=== PATIENT | female | born 2000 | race Caucasian/White ===

== ENCOUNTER 2020-04-28 04:55 | Inpatient (IN) | payer OTHER ==
--- NOTE | 2020-04-28 04:58 | ED ---
Overdose HPI - General Stated Complaint: Overdose Time Seen by Provider: 04/28/20 04:57 - Related Data Allergies Allergy/AdvReac Type Severity Reaction Status Date / Time Sulfa (Sulfonamide Allergy Anaphylaxis Verified 04/28/20 04:58 Antibiotics) Review of Systems ROS Statement: Those systems with pertinent positive or pertinent negative responses have been documented in the HPI. ROS Other: All systems not noted in ROS Statement are negative. Course Vital Signs 04/28/20 04/28/20 04/28/20 04:58 05:17 05:23 Temperature 97.7 F Pulse Rate 142 H 122 H Respiratory 22 18 16 Rate Blood Pressure 114/84 107/91 O2 Sat by Pulse 84 L 93 L Oximetry 04/28/20 04/28/20 04/28/20 05:37 05:44 06:19 Temperature Pulse Rate 134 H 133 H 130 H Respiratory 16 16 16 Rate Blood Pressure 105/75 118/74 106/76 O2 Sat by Pulse 91 L 95 95 Oximetry 04/28/20 06:28 Temperature Pulse Rate 120 H Respiratory 16 Rate Blood Pressure 109/77 O2 Sat by Pulse 95 Oximetry Medical Decision Making - Lab Data Result diagrams: 04/28/20 05:14 04/28/20 05:14 Lab Results 04/28/20 04/28/20 04/28/20 Range/Units 05:14 05:14 05:36 WBC 9.7 (3.8-10.6) k/uL RBC 5.51 H (3.80-5.40) m/uL Hgb 16.0 (11.4-16.0) gm/dL Hct 49.1 H (34.0-46.0) % MCV 89.2 (80.0-100.0) fL MCH 29.1 (25.0-35.0) pg MCHC 32.7 (31.0-37.0) g/dL RDW 12.9 (11.5-15.5) % Plt Count 420 (150-450) k/uL MPV 7.2 Neutrophils % 63 % Lymphocytes % 29 % Monocytes % 5 % Eosinophils % 1 % Basophils % 1 % Neutrophils # 6.1 (1.3-7.7) k/uL Lymphocytes # 2.8 (1.0-4.8) k/uL Monocytes # 0.5 (0-1.0) k/uL Eosinophils # 0.1 (0-0.7) k/uL Basophils # 0.1 (0-0.2) k/uL Sodium 141 (137-145) mmol/L Potassium 3.8 (3.5-5.1) mmol/L Chloride 103 (98-107) mmol/L Carbon Dioxide 22 (22-30) mmol/L Anion Gap 16 mmol/L BUN 13 (7-17) mg/dL Creatinine 0.85 (0.52-1.04) mg/dL Est GFR (CKD-EPI)AfAm >90 (>60 ml/min/1.73 sqM) Est GFR (CKD-EPI)NonAf >90 (>60 ml/min/1.73 sqM) Glucose 212 H (74-99) mg/dL Calcium 10.1 (8.4-10.2) mg/dL Total Bilirubin 0.5 (0.2-1.3) mg/dL AST 246 H (14-36) U/L ALT 176 H (4-34) U/L Alkaline Phosphatase 141 H (38-126) U/L Creatine Kinase 306 H (30-135) U/L Total Protein 8.7 H (6.3-8.2) g/dL Albumin 5.2 H (3.5-5.0) g/dL Lipase 69 (23-300) U/L Salicylates <1.0 mg/dL Acetaminophen <10.0 ug/mL Serum Alcohol <10 mg/dL Coronavirus (PCR) Not Detected (Not Detectd) - EKG Data -: EKG Interpreted by Me (EKG shows sinus tachycardia 127. 126 QRS 74 QTc 462) Critical Care Time Critical Care Time: Yes Total Critical Care Time: 31 Disposition Clinical Impression: Poisoning by opiates and related narcotics, other, Drug overdose, Non- cardiogenic pulmonary edema, Hypoxia, Tachycardia Disposition: ADMITTED IP TO THIS HOSP Condition: Serious Is patient prescribed a controlled substance at d/c from ED?: No Referrals: Jackie Damon MD [Primary Care Provider] - 1-2 days
[2020-04-28] MEDS ORDERED: ONDANSETRON 4 MG/2 ML VIAL ONE (05:10)
[2020-04-28] MEDS ORDERED: SODIUM CHLORIDE 0.9% 1,000 ML IV STA (05:11)
[2020-04-28] MEDS ORDERED: DIAZEPAM 5 MG/ML 2 ML INJ IVP STA (05:12)
[2020-04-28] MEDS ORDERED: ONDANSETRON 4 MG/2 ML VIAL IVP STA (05:12)
[2020-04-28] MEDS ORDERED: PANTOPRAZOLE 40 MG/10 ML VIAL IVP STA (05:12)
[2020-04-28] MEDS ORDERED: NALOXONE 0.4 MG/ML 1 ML VIAL IVP STA (05:14)
[2020-04-28 05:38] LABS: Basophils # (A) 0.1 k/uL (0-0.2); Basophils % (A) 1 %; Eosinophils # (A) 0.1 k/uL (0-0.7); Eosinophils % (A) 1 %; HCT 49.1 % (34.0-46.0); Lymphocytes # (A) 2.8 k/uL (1.0-4.8); Lymphocytes % (A) 29 %; MCH 29.1 pg (25.0-35.0); MCHC 32.7 g/dL (31.0-37.0); MCV 89.2 fL (80.0-100.0); Mean Platelet Volume 7.2; Monocytes # (A) 0.5 k/uL (0-1.0); Monocytes % (A) 5 %; Neutrophils # (A) 6.1 k/uL (1.3-7.7); Neutrophils % (A) 63 %; Platelet Count 420 k/uL (150-450); RBC 5.51 m/uL (3.80-5.40); RDW 12.9 % (11.5-15.5); WBC 9.7 k/uL (3.8-10.6)
[2020-04-28 05:48] LABS: ALT 176 U/L (4-34); AST 246 U/L (14-36); Acetaminophen <10.0 ug/mL; African American GFR (CKD) >90 (>60 ml/min/1.73 sqM); Albumin 5.2 g/dL (3.5-5.0); Alcohol <10 mg/dL; Alkaline Phosphatase 141 U/L (38-126); Anion Gap 16 mmol/L; Blood Urea Nitrogen 13 mg/dL (7-17); Calcium 10.1 mg/dL (8.4-10.2); Carbon Dioxide 22 mmol/L (22-30); Chloride 103 mmol/L (98-107); Creatine Kinase 306 U/L (30-135); Glucose 212 mg/dL (74-99); Lipase 69 U/L (23-300); Non-African American GFR(CKD) >90 (>60 ml/min/1.73 sqM); Potassium 3.8 mmol/L (3.5-5.1); Salicylate <1.0 mg/dL; Sodium 141 mmol/L (137-145); Total Bilirubin 0.5 mg/dL (0.2-1.3); Total Protein 8.7 g/dL (6.3-8.2)
--- NOTE | 2020-04-28 06:04 | XR ---
EXAM: XR Chest, 1 View CLINICAL HISTORY: ITS.REASON XR Reason: sob TECHNIQUE: Frontal view of the chest. COMPARISON: No relevant prior studies available. FINDINGS/IMPRESSION: Moderate patchy bilateral airspace consolidations, consistent with extensive infiltrates. Follow-up CXR required. No pneumothorax. Heart size exaggerated by projection and low lung volumes.
[2020-04-28] MEDS ORDERED: NALOXONE 0.4 MG/ML 1 ML VIAL IV PRN (06:29)
[2020-04-28] MEDS ORDERED: ONDANSETRON 4 MG/2 ML VIAL IVP PRN (06:29)
[2020-04-28] MEDS: PANTOPRAZOLE 40 MG/10 ML VIAL IV SCH (12:27)
[2020-04-28 13:07] LABS: Appearance,Urine Cloudy (Clear); Bacteria,Urine Rare /hpf; Bilirubin,Urine Negative (Negative); Blood,Urine Negative (Negative); Color,Urine Yellow; Glucose,Urine (UA) Negative (Negative); Hyaline Casts,Urine 3 /lpf (0-2); Ketones,Urine Negative (Negative); Leukocyte Esterase,Urine Negative (Negative); Mucus,Urine Few /hpf; Nitrite,Urine Negative (Negative); PH, Urine 5.5 (5.0-8.0); Protein,Urine Trace (Negative); RBC,Urine <1 /hpf (0-5); Specific Gravity,Urine 1.025 (1.001-1.035); Squamous Epithelial Cell,Urine 1 /hpf (0-4); Urobilinogen,Urine <2.0 mg/dL (<2.0); WBC,Urine 4 /hpf (0-5)
[2020-04-28 13:20] LABS: Amphetamine Screen,Urine Detected (NotDetected); Barbiturate Screen,Urine Not Detected (NotDetected); Benzodiazepines Screen,Urine Detected (NotDetected); Cocaine Screen,Urine Not Detected (NotDetected); Methadone Screen, Urine Not Detected (NotDetected); Opiate Screen,Urine Not Detected (NotDetected); Oxycodone Screen, Urine Not Detected (NotDetected); Phencyclidine Screen,Urine Not Detected (NotDetected); Tricyclic Antidepressant,Urine Not Detected (NotDetected); Urn Cannabinoid Scrn Not Detected (NotDetected)
--- NOTE | 2020-04-28 13:21 | CT ---
EXAMINATION TYPE: CT chest wo con DATE OF EXAM: 04/28/2020 COMPARISON: Chest x-ray 04/28/2020 HISTORY: Diffuse infiltrate in lungs. CT DLP: 512.2 mGycm, Automated exposure control for dose reduction was used. CONTRAST: Performed injected with mL of . TECHNIQUE: Axial images were obtained at 5 mm thick sections. Reconstructed images are reviewed on [employer] computer in the coronal plane. FINDINGS: Portion of the thyroid visualized is normal. Patchy infiltrates are present through the bilateral lung hermosillo findings are nonspecific but can be related to atypical pneumonia in the proper clinical setting. No enlarged mediastinal or hilar adenopathy is evident. Limited CT sections are obtained through the upper abdomen. Abdomen is essentially unremarkable. IMPRESSIONS: 1. Extensive diffuse patchy infiltrates throughout the bilateral lung hermosillo can be compatible with a typical pneumonia.
--- NOTE | 2020-04-28 15:42 | P.HPIM ---
History of Present Illness 19-year-old female came in after heroine overdose. Patient was recently discharged from a correctional facility. Patient denied any fever chills although patient is having significant cough which as per the patient started yesterday. Patient is not bringing up much. Chest x-ray showed highly questionable infiltrate prominently in the right lung hermosillo because of which a CT of the chest was obtained which showed bilateral diffuse infiltrates with some air bronchogram. Patient is tested for Covid 19 which was negative. Sarina ent does have history of hepatitis C. Patient does have mildly elevated liver enzymes secondary to this patient received 1 dose of Marcaine patient is more awake now. Review of Systems REVIEW OF SYSTEMS: CONSTITUTIONAL: No fever, no malaise, no fatigue. HEENT: No recent visual problems or hearing problems. Denied any sore throat. CARDIOVASCULAR: No chest pain, orthopnea, PND, no palpitations, no syncope. PULMONARY: no hemoptysis. GASTROINTESTINAL: No diarrhea, no nausea, no vomiting, no abdominal pain. NEUROLOGICAL: No headaches, no weakness, no numbness. HEMATOLOGICAL: Denies any bleeding or petechiae. GENITOURINARY: Denies any burning micturition, frequency, or urgency. MUSCULOSKELETAL/RHEUMATOLOGICAL: Denies any joint pain, swelling, or any muscle pain. ENDOCRINE: Denies any polyuria or polydipsia. The rest of the 14-point review of systems is negative. Past Medical History Past Medical History: No Reported History History of Any Multi-Drug Resistant Organisms: None Reported Past Surgical History: No Surgical Hx Reported Past Psychological History: No Psychological Hx Reported Smoking Status: Current every day smoker Past Alcohol Use History: None Reported Past Drug Use History: Heroin, Methamphetamine Medications and Allergies Home Medications Medication Instructions Recorded Confirmed Type Mirtazapine [Remeron] 30 mg PO HS 04/28/20 04/28/20 History hydrOXYzine pamoate [Vistaril] 100 mg PO HS 04/28/20 04/28/20 History Allergies Allergy/AdvReac Type Severity Reaction Status Date / Time Sulfa (Sulfonamide Allergy Anaphylaxis Verified 04/28/20 06:38 Antibiotics) Physical Exam Vitals: Vital Signs Temp Pulse Resp BP Pulse Ox 04/28/20 15:30 98.4 F 111 H 18 104/65 96 04/28/20 14:36 111 H 18 104/65 96 04/28/20 13:37 102 H 16 100/60 94 L 04/28/20 12:21 97 16 101/68 96 04/28/20 11:17 98.4 F 110 H 16 102/69 100 04/28/20 10:49 119 H 16 116/71 95 04/28/20 08:51 107 H 16 95 04/28/20 07:25 110 H 16 111/77 99 04/28/20 06:48 122 H 16 117/73 93 L 04/28/20 06:28 120 H 16 109/77 95 04/28/20 06:19 130 H 16 106/76 95 04/28/20 05:44 133 H 16 118/74 95 04/28/20 05:37 134 H 16 105/75 91 L 04/28/20 05:23 122 H 16 107/91 93 L 04/28/20 05:17 18 04/28/20 04:58 97.7 F 142 H 22 114/84 84 L Intake and Output 04/28/20 04/28/20 04/28/20 06:59 14:59 22:59 Other: Weight 99.79 kg PHYSICAL EXAMINATION: GENERAL: The patient is alert and oriented x3, not in any acute distress. Well developed, well nourished. HEENT: Pupils are round and equally reacting to light. EOMI. No scleral icterus. No conjunctival pallor. Normocephalic, atraumatic. No pharyngeal erythema. No thyromegaly. CARDIOVASCULAR: S1 and S2 present. No murmurs, rubs, or gallops. PULMONARY: Crackles posteriorly and bilaterally ABDOMEN: Soft, nontender, nondistended, normoactive bowel sounds. No palpable organomegaly. MUSCULOSKELETAL: No joint swelling or deformity. EXTREMITIES: No cyanosis, clubbing, or pedal edema. NEUROLOGICAL: Gross neurological examination did not reveal any focal deficits. SKIN: No rashes. Results CBC & Chem 7: 04/28/20 05:14 04/28/20 05:14 Labs: Abnormal Lab Results - Last 24 Hours (Table) 04/28/20 04/28/20 04/28/20 Range/Units 05:14 05:14 12:40 RBC 5.51 H (3.80-5.40) m/uL Hct 49.1 H (34.0-46.0) % Glucose 212 H (74-99) mg/dL AST 246 H (14-36) U/L ALT 176 H (4-34) U/L Alkaline Phosphatase 141 H (38-126) U/L Creatine Kinase 306 H (30-135) U/L Total Protein 8.7 H (6.3-8.2) g/dL Albumin 5.2 H (3.5-5.0) g/dL Urine Appearance (Clear) Urine Protein (Negative) Urine Bacteria (None) /hpf Hyaline Casts (0-2) /lpf Urine Mucus (None) /hpf Ur Amphetamines Screen Detected H (NotDetected) U Methamphetamines Scrn Detected H (NotDetected) U Benzodiazepines Scrn Detected H (NotDetected) 04/28/20 Range/Units 12:40 RBC (3.80-5.40) m/uL Hct (34.0-46.0) % Glucose (74-99) mg/dL AST (14-36) U/L ALT (4-34) U/L Alkaline Phosphatase (38-126) U/L Creatine Kinase (30-135) U/L Total Protein (6.3-8.2) g/dL Albumin (3.5-5.0) g/dL Urine Appearance Cloudy H (Clear) Urine Protein Trace H (Negative) Urine Bacteria Rare H (None) /hpf Hyaline Casts 3 H (0-2) /lpf Urine Mucus Few H (None) /hpf Ur Amphetamines Screen (NotDetected) U Methamphetamines Scrn (NotDetected) U Benzodiazepines Scrn (NotDetected) Assessment and Plan Plan: -Overdose on fentanyl: Patient is more awake now patient received narcane last night. Patient has amphetamines and benzodiazepines in her system as well -Cough and shortness of breath, acute hypoxic respiratory failure. Patient is presently on 3 L of oxygen this is improving when admitted patient was on BiPAP improved with treatment of opiate overdose although patient has bilateral infiltrates possibility of atypical pneumonia depending on the CT findings sarina ent was started on levofloxacin will obtain mycoplasma antibody and Legionella urinary antigen. -Tachycardia: Patient is sinus tachycardia with multifactorial from above- mentioned reasons patient will be going on IV fluids -Chronic hep C follow-up with the gastroneurology as infectious disease as an outpatient patient has liver enzymes that are elevated will repeat another CBC make sure they're not going up -Nicotine abuse: Counseling was provided -DVT prophylaxis with Lovenox, GI prophylaxis Pepcid
[2020-04-28] MEDS: SODIUM CHLORIDE 0.9% 1,000 ML IV SCH (15:58)
[2020-04-28] MEDS ORDERED: LEVOFLOXACIN 750MG-D5W PMX 750 MG in DEXTROSE/WATER 1 150ML.BAG IVPB SCH (16:00)
[2020-04-28] MEDS ORDERED: ENOXAPARIN 40 MG/0.4 ML SYRINGE SQ STA (16:23)
[2020-04-28] MEDS ORDERED: IPRATROPIUM-ALBUTEROL 3 ML NEB INHALATION PRN (17:11)
--- NOTE | 2020-04-28 17:11 | P.CNPUL ---
History of Present Illness Consult date: 04/28/20 Requesting physician: Debbie Benitez Reason for consult: dyspnea, cough, chest pain, hypoxemia, pneumonia, abnormal CXR/CT Chief complaint: Shortness of breath, hemoptysis. History of present illness: 19-year-old female, who apparently was brought into the emergency room, on April 28, at 5 AM, with apparent overdose. The patient states that she overdosed on fentanyl, which she was injecting. Her drug screen was also positive for amphetamines, methamphetamines, and benzodiazepines. The patient really does not have any memory of what happened to her. The patient only remembers being brought into the hospital by EMS. She apparently was doing drugs with some friends. This apparently was not her first overdose attempt and she states that she's had multiple overdose attempts in the past. She states that she does not vape, but does smoke cigarettes. She denies smoking marijuana. Her chest x-ray showed diffuse bilateral infiltrates, which could relate to negative pressure pulmonary edema, and/or aspiration. In addition, she's been coughing up bright red blood. She apparently does not have any past medical history. COVID 19 testing was negative. She does have a history of hepatitis C. White count is 9.7, hemoglobin 16, hematocrit 49.1, and platelet count 120,000. Sodium potassium chloride and CO2 were normal. Anion gap 16. BUN 13, and creatinine 0.85. AST was 246, ALT 176, CK 306, and urine was essentially negative. Again, drug screen was positive for amphetamines, methamphetamines, and benzodiazepines. Chest x-ray shows bilateral patchy airspace consolidations, and computed tomography scan extensive diffuse patchy infiltrates throughout both lungs. Review of Systems REVIEW OF SYSTEMS: CONSTITUTIONAL: [Negative.] NEUROLOGIC: [ Negative.] HEENT: [ Negative.] CARDIAC: [Negative.] PULMONARY: Shortness of breath, chest pain, cough, and hemoptysis. GI: [Negative.] : [Negative.] RHEUMATOLOGIC: [ Negative.] IMMUNOLOGIC: [ Negative.] ENDOCRINE: [Negative. ] DERMATOLOGIC: [Negative.] Past Medical History Past Medical History: No Reported History History of Any Multi-Drug Resistant Organisms: None Reported Past Surgical History: No Surgical Hx Reported Past Psychological History: Anxiety, Depression Smoking Status: Current every day smoker Past Alcohol Use History: None Reported Past Drug Use History: Heroin, Methamphetamine - Past Family History Father Family Medical History: Hypertension Medications and Allergies Home Medications Medication Instructions Recorded Confirmed Type Mirtazapine [Remeron] 30 mg PO HS 04/28/20 04/28/20 History hydrOXYzine pamoate [Vistaril] 100 mg PO HS 04/28/20 04/28/20 History Allergies Allergy/AdvReac Type Severity Reaction Status Date / Time Sulfa (Sulfonamide Allergy Anaphylaxis Verified 04/28/20 06:38 Antibiotics) Physical Exam Osteopathic Statement: *. No significant issues noted on an osteopathic structural exam other than those noted in the History and Physical/Consult. Vitals: Vital Signs Temp Pulse Pulse Resp BP BP Pulse Ox 04/28/20 16:30 109 H 20 04/28/20 16:04 98.2 F 112 H 18 109/61 93 L 04/28/20 15:30 98.4 F 111 H 18 104/65 96 04/28/20 14:36 111 H 18 104/65 96 04/28/20 13:37 102 H 16 100/60 94 L 04/28/20 12:21 97 16 101/68 96 04/28/20 11:17 98.4 F 110 H 16 102/69 100 04/28/20 10:49 119 H 16 116/71 95 04/28/20 08:51 107 H 16 95 04/28/20 07:25 110 H 16 111/77 99 04/28/20 06:48 122 H 16 117/73 93 L 04/28/20 06:28 120 H 16 109/77 95 04/28/20 06:19 130 H 16 106/76 95 04/28/20 05:44 133 H 16 118/74 95 04/28/20 05:37 134 H 16 105/75 91 L 04/28/20 05:23 122 H 16 107/91 93 L 04/28/20 05:17 18 04/28/20 04:58 97.7 F 142 H 22 114/84 84 L Intake and Output 04/28/20 04/28/20 04/28/20 06:59 14:59 22:59 Other: Weight 99.79 kg 99.79 kg No acute distress, oriented 3. The patient's on 3 L, and her saturation is 93%. No conversational dyspnea, or use of accessory muscles. HEENT examination is grossly unremarkable. Mucous membranes are moist. Neck supple. Full range of motion. No adenopathy thyromegaly or neck vein distention. Cardiovascular examination reveals regular rhythm rate. S1-S2 normal. No S3 or S4. No discernible murmur noted. Heart rate 109. Lungs reveal bilateral coarse rhonchi, and mild expiratory wheezes. No crackles. Breath sounds equal bilaterally. Abdomen soft bowel sounds are heard. No masses or tenderness. Extremities are intact. No cyanosis clubbing or edema. Skin is without rash or lesion. Neurologic examination is brief but nonfocal. Results - Laboratory Findings CBC and BMP: 04/28/20 05:14 04/28/20 05:14 Abnormal lab findings: Abnormal Labs 04/28/20 04/28/20 04/28/20 05:14 05:14 12:40 RBC 5.51 H Hct 49.1 H Glucose 212 H AST 246 H ALT 176 H Alkaline Phosphatase 141 H Creatine Kinase 306 H Total Protein 8.7 H Albumin 5.2 H Urine Appearance Urine Protein Urine Bacteria Hyaline Casts Urine Mucus Ur Amphetamines Screen Detected H U Methamphetamines Scrn Detected H U Benzodiazepines Scrn Detected H 04/28/20 12:40 RBC Hct Glucose AST ALT Alkaline Phosphatase Creatine Kinase Total Protein Albumin Urine Appearance Cloudy H Urine Protein Trace H Urine Bacteria Rare H Hyaline Casts 3 H Urine Mucus Few H Ur Amphetamines Screen U Methamphetamines Scrn U Benzodiazepines Scrn - Diagnostic Findings Chest x-ray: image reviewed CT scan - chest: image reviewed Assessment and Plan Assessment: Diffuse bilateral infiltrates with mild hypoxemia, which 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 Hemoptysis, secondary to above. History of polysubstance abuse including heroin, methamphetamines, amphetamines, and benzodiazepines. History of hepatitis C. History of previous drug overdoses. History of chronic tobacco use. Plan: Plan dated 04/28/2020. I recommend mostly just supportive care for this patient. Oxygen therapy, bronchodilators, and observation. I don't think the patient would benefit from antibiotics at this time. This is probably not or pharyngeal aspiration but rather gastric acid aspiration, which does not respond to antibiotics. Corticosteroid should not be used either. I will continue to follow make recommendations are appropriate. A repeat chest x-ray in the morning should be done. Additional recommendations and suggestions are forthcoming. Certainly things may change, and adjustments will need to be made. Time with Patient: Greater than 30
[2020-04-28] MEDS: IPRATROPIUM-ALBUTEROL 3 ML NEB INHALATION SCH (19:35)
[2020-04-28] MEDS: FAMOTIDINE 20 MG TAB PO SCH (21:03)
[2020-04-28] MEDS: IBUPROFEN 600 MG TAB PO PRN (21:03)
[2020-04-28] MEDS ORDERED: IBUPROFEN 600 MG TAB PO SCH (22:00)
[2020-04-29] MEDS: SODIUM CHLORIDE 0.9% 1,000 ML IV SCH ×3 (03:46→20:32)
[2020-04-29] MEDS: IPRATROPIUM-ALBUTEROL 3 ML NEB INHALATION SCH ×3 (07:40→20:51)
[2020-04-29 08:25] LABS: HCT 34.9 % (34.0-46.0); MCH 29.5 pg (25.0-35.0); MCV 89.2 fL (80.0-100.0); Mean Platelet Volume 6.8; RBC 3.91 m/uL (3.80-5.40); RDW 12.8 % (11.5-15.5); WBC 10.2 k/uL (3.8-10.6)
[2020-04-29 08:31] LABS: HGB 11.5 gm/dL (11.4-16.0); Platelet Count 196 k/uL (150-450)
[2020-04-29 08:43] LABS: ALT 128 U/L (4-34); AST 139 U/L (14-36); African American GFR (CKD) >90 (>60 ml/min/1.73 sqM); Albumin 3.4 g/dL (3.5-5.0); Alkaline Phosphatase 66 U/L (38-126); Anion Gap 6 mmol/L; Blood Urea Nitrogen 13 mg/dL (7-17); Calcium 8.1 mg/dL (8.4-10.2); Carbon Dioxide 25 mmol/L (22-30); Chloride 105 mmol/L (98-107); Glucose 87 mg/dL (74-99); Magnesium 1.8 mg/dL (1.6-2.3); Non-African American GFR(CKD) >90 (>60 ml/min/1.73 sqM); Phosphorus 2.7 mg/dL (2.5-4.5); Potassium 4.1 mmol/L (3.5-5.1); Sodium 136 mmol/L (137-145); Total Protein 5.9 g/dL (6.3-8.2)
[2020-04-29] MEDS: IBUPROFEN 600 MG TAB PO PRN (08:44)
[2020-04-29] MEDS: PANTOPRAZOLE 40 MG/10 ML VIAL IV SCH ×2 (08:44→20:32)
[2020-04-29] MEDS: FAMOTIDINE 20 MG TAB PO SCH (08:45)
[2020-04-29] MEDS ORDERED: ENOXAPARIN 40 MG/0.4 ML SYRINGE SQ SCH (09:00)
--- NOTE | 2020-04-29 11:28 | XR ---
EXAMINATION TYPE: XR chest 1V DATE OF EXAM: 04/29/2020 COMPARISON: 04/28/2020 INDICATION: NCPE TECHNIQUE: Single frontal view of the chest is obtained. FINDINGS: The heart size is normal. The pulmonary vasculature is distinct. Patchy bilateral lung infiltrates are present. This appears improved from comparison. IMPRESSION: 1. Patchy bilateral infiltrates correlate for atypical pneumonia. Findings are improved from comparis on.
--- NOTE | 2020-04-29 13:34 | P.PN ---
Subjective Progress Note Date: 04/29/20 Principal diagnosis: Drug overdose, aspiration 19-year-old female, who apparently was brought into the emergency room, on April 28, at 5 AM, with apparent overdose. The patient states that she overdosed on fentanyl, which she was injecting. Her drug screen was also positive for amphetamines, methamphetamines, and benzodiazepines. The patient really does not have any memory of what happened to her. The patient only remembers being brought into the hospital by EMS. She apparently was doing drugs with some friends. This apparently was not her first overdose attempt and she states that she's had multiple overdose attempts in the past. She states that she does not vape, but does smoke cigarettes. She denies smoking marijuana. Her chest x-ray showed diffuse bilateral infiltrates, which could relate to negative pressure pulmonary edema, and/or aspiration. In addition, she's been coughing up bright red blood. She apparently does not have any past medical history. COVID 19 testing was negative. She does have a history of hepatitis C. White count is 9.7, hemoglobin 16, hematocrit 49.1, and platelet count 120,000. Sodium potassium chloride and CO2 were normal. Anion gap 16. BUN 13, and creatinine 0.85. AST was 246, ALT 176, CK 306, and urine was essentially negative. Again, drug screen was positive for amphetamines, methamphetamines, and benzodiazep sandra. Chest x-ray shows bilateral patchy airspace consolidations, and computed tomography scan extensive diffuse patchy infiltrates throughout both lungs. The patient is seen today 04/29/2020 in follow-up on the selective care unit. She is currently resting comfortably in bed. Awake and alert, in no acute distress. Maintaining O2 saturations in the low 90s on 3 L/m per nasal cannula. Afebrile. She is feeling a bit better today compared to yesterday. Less cough and congestion. Less hemoptysis. Chest x-ray showed slight improvement in the patchy bilateral infiltrates. White count 10.2. Hemoglobin 11.5. Sodium 136. Potassium 4.1. Creatinine 0.54. She remains on bronchodilators, Protonix. Objective - Vital Signs Vital signs: Vital Signs Temp 98.5 F 04/29/20 08:00 Pulse 107 H 04/29/20 12:00 Resp 18 04/29/20 12:00 BP 91/52 04/29/20 12:00 Pulse Ox 93 L 04/29/20 12:00 Intake & Output 04/28/20 04/29/20 04/29/20 18:59 06:59 18:59 Intake Total 450 Balance 450 Weight 99.79 kg 103.2 kg Intake: Oral 450 Other: Voiding Method Toilet # Voids 1 - Exam GENERAL EXAM: Alert, pleasant 19-year-old female patient, on 3 L nasal cannula, comfortable in no apparent distress. HEAD: Normocephalic. EYES: Normal reaction of pupils, equal size. NOSE: Clear with pink turbinates. THROAT: No erythema or exudates. NECK: No masses, no JVD. CHEST: No chest wall deformity. LUNGS: Equal air entry with bilateral scattered rhonchi. CVS: S1 and S2 normal with no audible murmur, regular rhythm. ABDOMEN: No hepatosplenomegaly, normal bowel sounds, no guarding or rigidity. SPINE: No scoliosis or deformity SKIN: No rashes CENTRAL NERVOUS SYSTEM: No focal deficits, tone is normal in all 4 extremities. EXTREMITIES: There is no peripheral edema. No clubbing, no cyanosis. Peripheral pulses are intact. 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 2 Hemoptysis, secondary to above. 3 History of polysubstance abuse including heroin, methamphetamines, amphetamines, and benzodiazepines. 4 History of hepatitis C. 5 History of previous drug overdoses. 6 History of chronic tobacco use. Plan: The patient was seen and evaluated by Dr. Hercules Chest x-ray and labs reviewed The moment improved today compared to yesterday Titrate down the FiO2 as tolerated Repeat chest x-ray in a.m. Probable discharge in the a.m. I, the cosigning physician, performed a history & physical examination of the patient. Lungs sounds with bilateral scattered rhonchi. Maintaining good O2 saturations in the 90s on 3 L/m per nasal cannula. I discussed the assessment and plan of care with my nurse practitioner, Bethany Rice. I attest to the above note as dictated by her.
[2020-04-29] MEDS ORDERED: guaiFENesin-DM 100-10MG/5ML 10 ML CUP PO PRN (16:06)
[2020-04-29] MEDS: BENZOCAINE/MENTHOL LOZENG 1 EACH LOZENGE MUCOUS MEM PRN (17:42)
--- NOTE | 2020-04-29 17:53 | P.PN ---
Subjective 19-year-old female came in after heroine overdose. Patient was recently discharged from a correctional facility. Patient denied any fever chills a lthough patient is having significant cough which as per the patient started yesterday. Patient is not bringing up much. Chest x-ray showed highly questionable infiltrate prominently in the right lung hermosillo because of which a CT of the chest was obtained which showed bilateral diffuse infiltrates with some air bronchogram. Patient is tested for Covid 19 which was negative. Patient does have history of hepatitis C. Patient does have mildly elevated liver enzymes secondary to this patient received 1 dose of Marcaine patient is more awake now. 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 Patient is much more awake looks much better today Constitutional: Denied any fatigue denied any fever. Cardio vascular: denied any chest pain, palpitations Gastrointestinal denied any nausea vomiting Pulmonary: Denied any shortness of breath cough Neurologic denied any new focal deficits All inpatient medications were reviewed and appropriate changes in these medications as dictated in the interval history and assessment and plan. Objective - Vital Signs Vital signs: Vital Signs Temp 98.5 F 04/29/20 08:00 Pulse 107 H 04/29/20 13:57 Resp 18 04/29/20 13:57 BP 91/52 04/29/20 12:00 Pulse Ox 93 L 04/29/20 12:00 Intake & Output 04/28/20 04/29/20 04/29/20 18:59 06:59 18:59 Intake Total 450 480 Balance 450 480 Weight 99.79 kg 103.2 kg Intake: Oral 450 480 Other: Voiding Method Toilet # Voids 1 - Exam PHYSICAL EXAMINATION: GENERAL: The patient is alert and oriented x3, not in any acute distress. Well developed, well nourished. HEENT: Pupils are round and equally reacting to light. EOMI. No scleral icterus. No conjunctival pallor. Normocephalic, atraumatic. No pharyngeal erythema. No thyromegaly. CARDIOVASCULAR: S1 and S2 present. No murmurs, rubs, or gallops. PULMONARY: Crackles posteriorly and bilaterally ABDOMEN: Soft, nontender, nondistended, normoactive bowel sounds. No palpable organomegaly. MUSCULOSKELETAL: No joint swelling or deformity. EXTREMITIES: No cyanosis, clubbing, or pedal edema. NEUROLOGICAL: Gross neurological examination did not reveal any focal deficits. SKIN: No rashes. - Labs CBC & Chem 7: 04/29/20 08:15 04/29/20 08:15 Labs: Abnormal Lab Results - Last 24 Hours (Table) 04/29/20 Range/Units 08:15 Sodium 136 L (137-145) mmol/L Calcium 8.1 L (8.4-10.2) mg/dL AST 139 H (14-36) U/L ALT 128 H (4-34) U/L Total Protein 5.9 L (6.3-8.2) g/dL Albumin 3.4 L (3.5-5.0) g/dL Assessment and Plan Plan: -Overdose on fentanyl: Patient is more awake now patient received narcane last night. Patient has amphetamines and benzodiazepines in her system as well -Cough and shortness of breath, acute hypoxic respiratory failure. 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
[2020-04-30] MEDS: BENZOCAINE/MENTHOL LOZENG 1 EACH LOZENGE MUCOUS MEM PRN ×2 (02:58→20:58)
[2020-04-30] MEDS: IBUPROFEN 600 MG TAB PO PRN ×2 (02:58→20:58)
[2020-04-30] MEDS: SODIUM CHLORIDE 0.9% 1,000 ML IV SCH ×2 (06:34→09:27)
[2020-04-30] MEDS: IPRATROPIUM-ALBUTEROL 3 ML NEB INHALATION SCH ×3 (07:32→19:42)
--- NOTE | 2020-04-30 08:21 | P.PN ---
Subjective 19-year-old female came in after heroine overdose. Patient was recently discharged from a correctional facility. Patient denied any fever chills a lthough patient is having significant cough which as per the patient started yesterday. Patient is not bringing up much. Chest x-ray showed highly questionable infiltrate prominently in the right lung hermosillo because of which a CT of the chest was obtained which showed bilateral diffuse infiltrates with some air bronchogram. Patient is tested for Covid 19 which was negative. Patient does have history of hepatitis C. Patient does have mildly elevated liver enzymes secondary to this patient received 1 dose of Marcaine patient is more awake now. 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 Patient is much more awake looks much better today 04/30/2020 Patient is still requiring oxygen desaturated to 87% at rest without oxygen patient will be monitored one more day possibility of discharge tomorrow. Constitutional: Denied any fatigue denied any fever. Cardio vascular: denied any chest pain, palpitations Gastrointestinal denied any nausea vomiting Pulmonary: Denied any shortness of breath cough Neurologic denied any new focal deficits All inpatient medications were reviewed and appropriate changes in these me dications as dictated in the interval history and assessment and plan. Objective - Vital Signs Vital signs: Vital Signs Temp 97.6 F 04/30/20 03:24 Pulse 104 H 04/30/20 07:42 Resp 22 04/30/20 03:24 BP 125/82 04/30/20 03:24 Pulse Ox 92 L 04/30/20 03:24 Intake & Output 04/29/20 04/30/20 04/30/20 18:59 06:59 18:59 Intake Total 720 540 118 Balance 720 540 118 Weight 103.3 kg Intake: Oral 720 540 118 Other: Voiding Method Toilet # Voids 2 1 1 - Exam PHYSICAL EXAMINATION: GENERAL: The patient is alert and oriented x3, not in any acute distress. Well developed, well nourished. HEENT: Pupils are round and equally reacting to light. EOMI. No scleral icterus. No conjunctival pallor. Normocephalic, atraumatic. No pharyngeal erythema. No thyromegaly. CARDIOVASCULAR: S1 and S2 present. No murmurs, rubs, or gallops. PULMONARY: Clear without crackles or wheezing. ABDOMEN: Soft, nontender, nondistended, normoactive bowel sounds. No palpable organomegaly. MUSCULOSKELETAL: No joint swelling or deformity. EXTREMITIES: No cyanosis, clubbing, or pedal edema. NEUROLOGICAL: Gross neurological examination did not reveal any focal deficits. SKIN: No rashes. - Labs CBC & Chem 7: 04/29/20 08:15 04/29/20 08:15 Labs: Abnormal Lab Results - Last 24 Hours (Table) 04/29/20 Range/Units 08:15 Sodium 136 L (137-145) mmol/L Calcium 8.1 L (8.4-10.2) mg/dL AST 139 H (14-36) U/L ALT 128 H (4-34) U/L Total Protein 5.9 L (6.3-8.2) g/dL Albumin 3.4 L (3.5-5.0) g/dL Assessment and Plan Plan: -Overdose on fentanyl: Patient is more awake now patient received narcaneon admission. Patient has amphetamines and benzodiazepines in her system as well -Cough and shortness of breath, acute hypoxic respiratory failure. 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
[2020-04-30] MEDS: PANTOPRAZOLE 40 MG/10 ML VIAL IV SCH ×2 (09:26→20:59)
--- NOTE | 2020-04-30 09:50 | XR ---
EXAMINATION TYPE: XR chest 2V DATE OF EXAM: 04/30/2020 COMPARISON: 04/29/2020 INDICATION: Aspiration pneumonia TECHNIQUE: Frontal and lateral views of the chest are obtained. FINDINGS: The heart size is normal. The pulmonary vasculature is normal. Mild left perihilar infiltrate remains present. Right lower lobe infiltrate is not entirely excluded. Findings overall have improved over the interval.. IMPRESSION: 1. Significant improvement of bilateral lung infiltrates. Mild left perihilar infiltrate remains pres ent and there may be some minimal right lower lobe infiltrate.
--- NOTE | 2020-04-30 13:53 | P.PN ---
Subjective Progress Note Date: 04/30/20 Principal diagnosis: Drug overdose, aspiration 19-year-old female, who apparently was brought into the emergency room, on April 28, at 5 AM, with apparent overdose. The patient states that she overdosed on fentanyl, which she was injecting. Her drug screen was also positive for amphetamines, methamphetamines, and benzodiazepines. The patient really does not have any memory of what happened to her. The patient only remembers being brought into the hospital by EMS. She apparently was doing drugs with some friends. This apparently was not her first overdose attempt and she states that she's had multiple overdose attempts in the past. She states that she does not vape, but does smoke cigarettes. She denies smoking marijuana. Her chest x-ray showed diffuse bilateral infiltrates, which could relate to negative pressure pulmonary edema, and/or aspiration. In addition, she's been coughing up bright red blood. She apparently does not have any past medical history. COVID 19 testing was negative. She does have a history of hepatitis C. White count is 9.7, hemoglobin 16, hematocrit 49.1, and platelet count 120,000. Sodium potassium chloride and CO2 were normal. Anion gap 16. BUN 13, and creatinine 0.85. AST was 246, ALT 176, CK 306, and urine was essentially negative. Again, drug screen was positive for amphetamines, methamphetamines, and benzodiazep sandra. Chest x-ray shows bilateral patchy airspace consolidations, and computed tomography scan extensive diffuse patchy infiltrates throughout both lungs. The patient is seen today 04/29/2020 in follow-up on the selective care unit. She is currently resting comfortably in bed. Awake and alert, in no acute distress. Maintaining O2 saturations in the low 90s on 3 L/m per nasal cannula. Afebrile. She is feeling a bit better today compared to yesterday. Less cough and congestion. Less hemoptysis. Chest x-ray showed slight improvement in the patchy bilateral infiltrates. White count 10.2. Hemoglobin 11.5. Sodium 136. Potassium 4.1. Creatinine 0.54. She remains on bronchodilators, Protonix. The patient is seen today 04/30/2020 in follow-up on the selective care unit. She is currently resting comfortably in bed. Awake and alert in no acute distress. Denies any worsening shortness of breath, cough or congestion. No further hemoptysis. Chest x-ray showing thickened improvement. Mild left perihilar infiltrate remains and there is minimal right lower lobe infiltrate. She is still on 2 L/m per nasal cannula to maintain O2 saturations 90s. She is down to 83% on room air at rest. Objective - Vital Signs Vital signs: Vital Signs Temp 97.8 F 04/30/20 08:00 Pulse 109 H 04/30/20 13:39 Resp 20 04/30/20 13:39 BP 113/72 04/30/20 12:00 Pulse Ox 95 04/30/20 12:00 Intake & Output 04/29/20 04/30/20 04/30/20 18:59 06:59 18:59 Intake Total 720 540 118 Balance 720 540 118 Weight 103.3 kg Intake: Oral 720 540 118 Other: Voiding Method Toilet # Voids 2 1 1 - Exam GENERAL EXAM: Alert, pleasant 19-year-old female patient, on 2 L nasal cannula, comfortable in no apparent distress. HEAD: Normocephalic. EYES: Normal reaction of pupils, equal size. NOSE: Clear with pink turbinates. THROAT: No erythema or exudates. NECK: No masses, no JVD. CHEST: No chest wall deformity. LUNGS: Equal air entry with bilateral scattered rhonchi. CVS: S1 and S2 normal with no audible murmur, regular rhythm. ABDOMEN: No hepatosplenomegaly, normal bowel sounds, no guarding or rigidity. SPINE: No scoliosis or deformity SKIN: No rashes CENTRAL NERVOUS SYSTEM: No focal deficits, tone is normal in all 4 extremities. EXTREMITIES: There is no peripheral edema. No clubbing, no cyanosis. Peripheral pulses are intact. - Labs CBC & Chem 7: 04/29/20 08:15 04/29/20 08:15 Assessment and Plan Assessment: 1 Diffuse bilateral infiltrates with mild hypoxemia, which 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 2 Hemoptysis, secondary to above. 3 History of polysubstance abuse including heroin, methamphetamines, amphetamines, and benzodiazepines. 4 History of hepatitis C. 5 History of previous drug overdoses. 6 History of chronic tobacco use. Plan: The patient was seen and evaluated by Dr. Hercules Chest x-ray showing significant improvement Cleared for discharge from the pulmonary standpoint May qualify from home oxygen X-ray in our office in 1-2 weeks I, the cosigning physician, performed a history & physical examination of the patient. Lungs sounds with bilateral scattered rhonchi. Maintaining good O2 saturations in the 90s on 2 L/m per nasal cannula. I discussed the assessment and plan of care with my nurse practitioner, Bethany Rice. I attest to the above note as dictated by her.
[2020-05-01] MEDS: SODIUM CHLORIDE 0.9% 1,000 ML IV SCH ×2 (05:29→21:03)
[2020-05-01] MEDS: IPRATROPIUM-ALBUTEROL 3 ML NEB INHALATION SCH ×3 (07:54→19:17)
[2020-05-01] MEDS: PANTOPRAZOLE 40 MG/10 ML VIAL IV SCH (09:17)
--- NOTE | 2020-05-01 09:39 | P.PN ---
Subjective Progress Note Date: 05/01/20 19-year-old female, who apparently was brought into the emergency room, on April 28, at 5 AM, with apparent overdose. The patient states that she overdosed on fentanyl, which she was injecting. Her drug screen was also positive for amphetamines, methamphetamines, and benzodiazepines. The patient really does not have any memory of what happened to her. The patient only remembers being brought into the hospital by EMS. She apparently was doing drugs with some friends. This apparently was not her first overdose attempt and she states that she's had multiple overdose attempts in the past. She states that she does not vape, but does smoke cigarettes. She denies smoking marijuana. Her chest x-ray showed diffuse bilateral infiltrates, which could relate to negative pressure pulmonary edema, and/or aspiration. In addition, she's been coughing up bright red blood. She apparently does not have any past medical history. COVID 19 testing was negative. She does have a history of hepatitis C. White count is 9.7, hemoglobin 16, hematocrit 49.1, and platelet count 120,000. Sodium potassium chloride and CO2 were normal. Anion gap 16. BUN 13, and creatinine 0.85. AST was 246, ALT 176, CK 306, and urine was essentially negative. Again, drug screen was positive for amphetamines, methamphetamines, and benzodiazepines. Chest x-ray shows bilateral patchy airspace consolidations, and computed tomography scan extensive diffuse patchy infiltrates throughout both lungs. The patient is seen today 04/29/2020 in follow-up on the selective care unit. She is currently resting comfortably in bed. Awake and alert, in no acute distress. Maintaining O2 saturations in the low 90s on 3 L/m per nasal cannula. Afebrile. She is feeling a bit better today compared to yesterday. Less cough and congestion. Less hemoptysis. Chest x-ray showed slight improvement in the patchy bilateral infiltrates. White count 10.2. Hemoglobin 11.5. Sodium 136. Potassium 4.1. Creatinine 0.54. She remains on bronchodilators, Protonix. The patient is seen today 04/30/2020 in follow-up on the selective care unit. She is currently resting comfortably in bed. Awake and alert in no acute distress. Denies any worsening shortness of breath, cough or congestion. No further hemoptysis. Chest x-ray showing thickened improvement. Mild left perihilar infiltrate remains and there is minimal right lower lobe infiltrate. She is still on 2 L/m per nasal cannula to maintain O2 saturations 90s. She is down to 83% on room air at rest. On 05/01/2020 the patient is being seen in follow-up. The patient is awake and alert and the patient is following commands and answering questions. Denies having any significant shortness of breath. Note that the patient was hospitalized a few days back after she overdosed on fentanyl. She was also positive for amphetamines and methamphetamines and benzodiazepines. She has no recollection of these events. The patient also smokes marijuana. The chest x- ray showed diffuse but the pulmonary infiltrates and this was considered to be related to aspiration/acute lung injury. Her coronavirus/Covid 19 testing came back negative and the patient has positive history of hepatitis C. She did have abnormal LFTs which are also improving for now. Electrolytes are all within normal limits. She is currently on 2 L by nasal cannula with a pulse ox of 97%. She is receiving IV fluid with 75 mL of normal saline. The chest x-ray from yesterday showed improvement in about the pulmonary infiltrates and the patient had left perihilar infiltrate that was still present. There may be some also in the right lower lobe. Subsequently, I was able to wean her down to room air oxygen today and oxygen level remains above 90% on room air oxygen. The last chest x-rays from yesterday showed some limited infiltration of the left perihilar area and the right perihilar area. Objective - Vital Signs Vital signs: Vital Signs Temp 98.2 F 05/01/20 03:35 Pulse 96 05/01/20 08:05 Resp 18 05/01/20 03:35 BP 142/84 05/01/20 03:35 Pulse Ox 98 05/01/20 03:35 Intake & Output 04/30/20 05/01/20 05/01/20 18:59 06:59 18:59 Intake Total 358 880 Balance 358 880 Weight 102.6 kg Intake: Oral 358 880 Other: Voiding Method Toilet # Voids 1 2 - Exam GENERAL EXAM: Alert, pleasant 19-year-old female patient, on 2 L nasal cannula, comfortable in no apparent distress. HEAD: Normocephalic. EYES: Normal reaction of pupils, equal size. NOSE: Clear with pink turbinates. THROAT: No erythema or exudates. NECK: No masses, no JVD. CHEST: No chest wall deformity. LUNGS: Equal air entry with bilateral scattered rhonchi. CVS: S1 and S2 normal with no audible murmur, regular rhythm. ABDOMEN: No hepatosplenomegaly, normal bowel sounds, no guarding or rigidity. SPINE: No scoliosis or deformity SKIN: No rashes CENTRAL NERVOUS SYSTEM: No focal deficits, tone is normal in all 4 extremities. EXTREMITIES: There is no peripheral edema. No clubbing, no cyanosis. Peripheral pulses are intact. - Labs CBC & Chem 7: 04/29/20 08:15 04/29/20 08:15 Assessment and Plan Plan: 1 Diffuse bilateral infiltrates with mild hypoxemia, which 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 The patient is currently on 2 L of oxygen by nasal cannula. The chest x-ray was showing improvement in the vital pulmonary infiltrates. No signs of any respiratory distress at this point in time. 2 Hemoptysis, secondary to above. 3 History of polysubstance abuse including heroin, methamphetamines, amphetamines, and benzodiazepines. 4 History of hepatitis C. 5 History of previous drug overdoses. 6 History of chronic tobacco use 7 abnormal LFTs, improving. Plan: Chest x-ray showing significant improvement, currently on room air oxygen. No signs of any respiratory distress. No leukocytosis. LFTs are improving. She is tolerating her diet. Normal mentation. IV fluids will be To KVO. Possible Home Today. I'll Suggest Repeating One Final Chest X-Ray Prior to Her Being Discharged to Make Sure There Is No Worsening of the Pulmonary Infiltrates. If There Is Any Worsening, and [employer] Antibiotic Coverage Covering Aspiration Will Be Added.
[2020-05-01] MEDS: IBUPROFEN 600 MG TAB PO PRN ×2 (10:18→22:35)
--- NOTE | 2020-05-01 10:23 | XR ---
EXAMINATION TYPE: XR chest 1V portable DATE OF EXAM: 05/01/2020 COMPARISON: Chest x-ray 04/30/2020 HISTORY: Aspiration pneumonia TECHNIQUE: Single frontal view of the chest is obtained. FINDINGS: Patchy airspace disease is suspected greater on the left, right hemidiaphragm remains elev ated. There is no evident pneumothorax or pleural effusion. There is a spinal curvature. Cardiac medi astinal silhouette is not significantly changed. IMPRESSION: Correlate for pneumonia.
[2020-05-01 15:55] LABS: Basophils % (A) 0 %; Eosinophils # (A) 0.1 k/uL (0-0.7); Eosinophils % (A) 2 %; HCT 33.3 % (34.0-46.0); HGB 11.5 gm/dL (11.4-16.0); Lymphocytes # (A) 1.3 k/uL (1.0-4.8); Lymphocytes % (A) 21 %; MCH 29.5 pg (25.0-35.0); MCHC 34.5 g/dL (31.0-37.0); MCV 85.5 fL (80.0-100.0); Monocytes # (A) 0.5 k/uL (0-1.0); Monocytes % (A) 8 %; Neutrophils # (A) 4.2 k/uL (1.3-7.7); Neutrophils % (A) 67 %; Platelet Count 217 k/uL (150-450); RDW 12.3 % (11.5-15.5); WBC 6.2 k/uL (3.8-10.6)
[2020-05-01 16:05] LABS: ALT 94 U/L (4-34); AST 91 U/L (14-36); African American GFR (CKD) >90 (>60 ml/min/1.73 sqM); Albumin 3.5 g/dL (3.5-5.0); Alkaline Phosphatase 67 U/L (38-126); Anion Gap 7 mmol/L; Blood Urea Nitrogen 8 mg/dL (7-17); Calcium 8.3 mg/dL (8.4-10.2); Carbon Dioxide 24 mmol/L (22-30); Chloride 105 mmol/L (98-107); Glucose 91 mg/dL (74-99); Non-African American GFR(CKD) >90 (>60 ml/min/1.73 sqM); Sodium 136 mmol/L (137-145); Total Protein 6.2 g/dL (6.3-8.2)
[2020-05-01] MEDS: LEVOFLOXACIN 750 MG TAB PO SCH (16:46)
[2020-05-01] MEDS: ENOXAPARIN 40 MG/0.4 ML SYRINGE SQ SCH (16:46)
[2020-05-01] MEDS: PANTOPRAZOLE 40 MG TABLET PO SCH (16:46)
--- NOTE | 2020-05-01 16:59 | P.PN ---
Subjective Progress Note Date: 05/01/20 Principal diagnosis: Acute hypoxic respiratory failure, fentanyl overdose Mr. Cruz is a 25-year-old female with no significant past medical history admitted for apparent drug overdose. She said she overdose on fentanyl and hurt UDS was positive for amphetamines and methamphetamines and benzodiazepines. She had a chest x-ray done showing diffuse bilateral infiltrates and she is also noticed to be coughing up bright red blood. COVID 19 testing negative. On 05/02/2019 - patient was seen and examined the bedside. She is comfortably sitting up in the bed with oxygen on saturating at 96% on 2 L. Patient denies having any difficulty in breathing, no cough or sputum production. Patient had a chest x-ray done this morning that was showing possible left lower lobe inf iltrate and she also spiked a fever of 100.6 this morning. On review of systems: Constitutional: Denied any fatigue Cardio vascular: denied any chest pain, palpitations Gastrointestinal denied any nausea vomiting Pulmonary: Denied any shortness of breath cough Genitourinary: No dysuria or hematuria Objective - Vital Signs Vital signs: Vital Signs Temp 100.6 F H 05/01/20 12:00 Pulse 100 05/01/20 12:18 Resp 18 05/01/20 12:00 BP 146/92 05/01/20 12:00 Pulse Ox 92 L 05/01/20 12:00 Intake & Output 04/30/20 05/01/20 05/01/20 18:59 06:59 18:59 Intake Total 130 708 7063 Balance 648 060 9510 Weight 102.6 kg Intake: Intake, IV Titration 600 Amount Sodium Chloride 0.9% 1, 600 000 ml @ 75 mls/hr IV . [id number] REPLACED BY [facility] Rx#:[id number] Oral [phone] Other: Voiding Method Toilet # Voids 1 2 1 - Exam PHYSICAL EXAMINATION: GENERAL: The patient is alert and oriented x3, not in any acute distress. Well developed, well nourished. HEENT: Pupils are round and equally reacting to light. EOMI. No scleral icterus. No conjunctival pallor. Normocephalic, atraumatic. No pharyngeal erythema. No thyromegaly. CARDIOVASCULAR: S1 and S2 present. No murmurs, rubs, or gallops. PULMONARY: Clear without crackles or wheezing. ABDOMEN: Soft, nontender, nondistended, normoactive bowel sounds. No palpable organomegaly. MUSCULOSKELETAL: No joint swelling or deformity. EXTREMITIES: No cyanosis, clubbing, or pedal edema. NEUROLOGICAL: Gross neurological examination did not reveal any focal deficits. SKIN: No rashes. - Labs CBC & Chem 7: 05/02/20 06:34 05/02/20 06:34 Assessment and Plan Assessment: ASSESSMENT Acute hypoxic respiratory failure -possibly left lower lobe infiltrate could be aspiration Fever 100.6 Overdose of fentanyl History of polysubstance abuse History of hepatitis C Nicotine dependence Transaminitis PLAN: Patient had a chest x-ray showing left lower lobe infiltrate and spiked a fever of 100.6 this morning, so will start her on Levoofloxacin. As the patient has hemoptysis and hypoxia will check for d-dimer. LFTs trending down. Continue with GI Protonix and DVT prophylaxis with Lovenox. Further recommendations depending on the progress of the patient.
[2020-05-02 04:12] VITALS: RESP 20
[2020-05-02] MEDS: PANTOPRAZOLE 40 MG TABLET PO SCH (06:58)
[2020-05-02] MEDS: IPRATROPIUM-ALBUTEROL 3 ML NEB INHALATION SCH ×2 (07:39→15:23)
[2020-05-02 07:57] LABS: Basophils % (A) 0 %; Eosinophils # (A) 0.2 k/uL (0-0.7); Eosinophils % (A) 3 %; HCT 33.3 % (34.0-46.0); HGB 11.4 gm/dL (11.4-16.0); Lymphocytes # (A) 1.3 k/uL (1.0-4.8); Lymphocytes % (A) 23 %; MCH 29.3 pg (25.0-35.0); MCHC 34.2 g/dL (31.0-37.0); MCV 85.7 fL (80.0-100.0); Mean Platelet Volume 7.1; Monocytes # (A) 0.5 k/uL (0-1.0); Monocytes % (A) 9 %; Neutrophils # (A) 3.5 k/uL (1.3-7.7); Neutrophils % (A) 63 %; Platelet Count 232 k/uL (150-450); RBC 3.88 m/uL (3.80-5.40); RDW 12.4 % (11.5-15.5); WBC 5.6 k/uL (3.8-10.6)
[2020-05-02 08:07] LABS: African American GFR (CKD) >90 (>60 ml/min/1.73 sqM); Anion Gap 8 mmol/L; Blood Urea Nitrogen 11 mg/dL (7-17); Calcium 8.5 mg/dL (8.4-10.2); Carbon Dioxide 24 mmol/L (22-30); Chloride 105 mmol/L (98-107); Glucose 84 mg/dL (74-99); Non-African American GFR(CKD) >90 (>60 ml/min/1.73 sqM); Potassium 4.1 mmol/L (3.5-5.1); Sodium 137 mmol/L (137-145)
[2020-05-02] MEDS: SODIUM CHLORIDE 0.9% 1,000 ML IV SCH (08:39)
[2020-05-02] MEDS: ENOXAPARIN 40 MG/0.4 ML SYRINGE SQ SCH (08:39)
[2020-05-02] MEDS: LEVOFLOXACIN 750 MG TAB PO SCH (08:40)
--- NOTE | 2020-05-02 10:33 | P.PN ---
Subjective Progress Note Date: 05/02/20 19-year-old female, who apparently was brought into the emergency room, on April 28, at 5 AM, with apparent overdose. The patient states that she overdosed on fentanyl, which she was injecting. Her drug screen was also positive for amphetamines, methamphetamines, and benzodiazepines. The patient really does not have any memory of what happened to her. The patient only remembers being brought into the hospital by EMS. She apparently was doing drugs with some friends. This apparently was not her first overdose attempt and she states that she's had multiple overdose attempts in the past. She states that she does not vape, but does smoke cigarettes. She denies smoking marijuana. Her chest x-ray showed diffuse bilateral infiltrates, which could relate to negative pressure pulmonary edema, and/or aspiration. In addition, she's been coughing up bright red blood. She apparently does not have any past medical history. COVID 19 testing was negative. She does have a history of hepatitis C. White count is 9.7, hemoglobin 16, hematocrit 49.1, and platelet count 120,000. Sodium potass ium chloride and CO2 were normal. Anion gap 16. BUN 13, and creatinine 0.85. AST was 246, ALT 176, CK 306, and urine was essentially negative. Again, drug screen was positive for amphetamines, methamphetamines, and benzodiazepines. Chest x-ray shows bilateral patchy airspace consolidations, and computed tomography scan extensive diffuse patchy infiltrates throughout both lungs. The patient is seen today 04/29/2020 in follow-up on the selective care unit. She is currently resting comfortably in bed. Awake and alert, in no acute distress. Maintaining O2 saturations in the low 90s on 3 L/m per nasal cannula. Afebrile. She is feeling a bit better today compared to yesterday. Less cough and congestion. Less hemoptysis. Chest x-ray showed slight improvement in the patchy bilateral infiltrates. White count 10.2. Hemoglobin 11.5. Sodium 136. Potassium 4.1. Creatinine 0.54. She remains on bronchodilators, Protonix. The patient is seen today 04/30/2020 in follow-up on the selective care unit. She is currently resting comfortably in bed. Awake and alert in no acute distre ss. Denies any worsening shortness of breath, cough or congestion. No further hemoptysis. Chest x-ray showing thickened improvement. Mild left perihilar infiltrate remains and there is minimal right lower lobe infiltrate. She is still on 2 L/m per nasal cannula to maintain O2 saturations 90s. She is down to 83% on room air at rest. On 05/01/2020 the patient is being seen in follow-up. The patient is awake and alert and the patient is following commands and answering questions. Denies dao ving any significant shortness of breath. Note that the patient was hospitalized a few days back after she overdosed on fentanyl. She was also positive for amphetamines and methamphetamines and benzodiazepines. She has no recollection of these events. The patient also smokes marijuana. The chest x- ray showed diffuse but the pulmonary infiltrates and this was considered to be related to aspiration/acute lung injury. Her coronavirus/Covid 19 testing came back negative and the patient has positive history of hepatitis C. She did have abnormal LFTs which are also improving for now. Electrolytes are all within normal limits. She is currently on 2 L by nasal cannula with a pulse ox of 97 %. She is receiving IV fluid with 75 mL of normal saline. The chest x-ray from yesterday showed improvement in about the pulmonary infiltrates and the patient had left perihilar infiltrate that was still present. There may be some also in the right lower lobe. Subsequently, I was able to wean her down to room air oxygen today and oxygen level remains above 90% on room air oxygen. The last chest x-rays from yesterday showed some limited infiltration of the left perihilar area and the right perihilar area. 05/02/2020, the patient is being seen for a follow-up. The concern is that whether the patient has an underlying pneumonia. For that reason, repeat chest x-ray was done yesterday and based on the reports, the patient has some residual patchy infiltrates bilaterally more so on the left. The patient is currently on room air oxygen. Pulse ox is around 94%. White cell count is up to 5. She did have a low-grade fever and this recovered and currently she is afebrile. Neurologically she is intact. She has no other specific complaints. She is currently on Levaquin at a dose of 750 mg daily and I would suggest obtaining the course for a total of 5 days. Objective - Vital Signs Vital signs: Vital Signs Temp 99.1 F 03/23/21 04:00 Pulse 80 05/02/20 07:49 Resp 20 05/02/20 04:00 BP 124/84 05/02/20 04:00 Pulse Ox 94 L 05/02/20 04:00 Intake & Output 05/01/20 05/02/20 05/02/20 18:59 06:59 18:59 Intake Total 1382 236 Balance 1382 236 Weight 100.9 kg Intake: Intake, IV Titration 600 Amount Sodium Chloride 0.9% 1, 600 000 ml @ 75 mls/hr IV . [id number] [facility] Rx#:[id number] Oral 782 236 Other: Voiding Method Toilet # Voids 1 - Exam GENERAL EXAM: Alert, pleasant 19-year-old female patient, on RA, comfortable in no apparent distress. HEAD: Normocephalic. EYES: Normal reaction of pupils, equal size. NOSE: Clear with pink turbinates. THROAT: No erythema or exudates. NECK: No masses, no JVD. CHEST: No chest wall deformity. LUNGS: Equal air entry with bilateral scattered rhonchi. CVS: S1 and S2 normal with no audible murmur, regular rhythm. ABDOMEN: No hepatosplenomegaly, normal bowel sounds, no guarding or rigidity. SPINE: No scoliosis or deformity SKIN: No rashes CENTRAL NERVOUS SYSTEM: No focal deficits, tone is normal in all 4 extremities. EXTREMITIES: There is no peripheral edema. No clubbing, no cyanosis. Peripheral pulses are intact. - Labs CBC & Chem 7: 05/02/20 06:34 05/02/20 06:34 Labs: Abnormal Lab Results - Last 24 Hours (Table) 05/01/20 05/01/20 05/02/20 Range/Units 15:23 15:23 06:34 Hct 33.3 L 33.3 L (34.0-46.0) % Sodium 136 L (137-145) mmol/L Creatinine 0.50 L (0.52-1.04) mg/dL Calcium 8.3 L (8.4-10.2) mg/dL AST 91 H (14-36) U/L ALT 94 H (4-34) U/L Total Protein 6.2 L (6.3-8.2) g/dL Assessment and Plan Plan: 1 Diffuse bilateral infiltrates with mild hypoxemia, which 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 The patient is currently on R A oxygen by nasal cannula. The chest x-ray was showing improvement in the vital pulmonary infiltrates. No signs of any respiratory distress at this point in time. Currently the patient is on Levaquin 750 mg. Chest x-ray from yesterday was noted. The patient a low-grade fever. 2 Hemoptysis, secondary to above. 3 History of polysubstance abuse including heroin, methamphetamines, amphetamines, and benzodiazepines. 4 History of hepatitis C. 5 History of previous drug overdoses. 6 History of chronic tobacco use 7 abnormal LFTs, improving. Plan: Chest x-ray was noted. There is some residual infiltrates. She had a low-grade fever. Completed a five-day course of Levaquin and she can be discharged from the pulmonary standpoint.
[2020-05-02 12:44] VITALS: BP 135/84; TEMP 98.8
--- NOTE | 2020-05-02 13:02 | P.DS ---
Providers Date of admission: 04/28/20 06:30 Expected date of discharge: 05/02/20 Attending physician: Vero Villalba Consults: 04/28/20 12:29 Consult Physician Routine Consulting Provider: Phuc Hercules Reason/Comments: Hypoxia and possible aspiration Do you want consulting provider notified?: Yes Primary care physician: [facility] Hospital Course: HPI - Ms. 19-year-old female, who apparently was brought into the emergency room, on April 28, at 5 AM, with apparent overdose. The patient states that she overdosed on fentanyl, which she was injecting. Her drug screen was also positive for amphetamines, methamphetamines, and benzodiazepines. The patient really does not have any memory of what happened to her. The patient only remembers being brought into the hospital by EMS. She apparently was doing drugs with some friends. This apparently was not her first overdose attempt and she states that she's had multiple overdose attempts in the past. She states that she does not vape, but does smoke cigarettes. She denies smoking marijuana. Her chest x-ray showed diffuse bilateral infiltrates, which could relate to negative pressure pulmonary edema, and/or aspiration. In addition, she's been coughing up bright red blood. She apparently does not have any past medical history. COVID 19 testing was negative. She does have a history of hepatitis C. White count is 9.7, hemoglobin 16, hematocrit 49.1, and platelet count 120,000. Sodium potassium chloride and CO2 were normal. Anion gap 16. BUN 13, and creatinine 0.85. AST was 246, ALT 176, CK 306, and urine was essentially negative. Again, drug screen was positive for amphetamines, methamphetamines, and benzodiazepines. Chest x-ray shows bilateral patchy airspace consolidations, and computed tomography scan extensive diffuse patchy infiltrates throughout both lungs. Hospital course: Patient's LFTs have been improving, repeat chest x-ray done was showing left perihilar infiltrate and patient spiked a fever of 100.6, so she has been started on levofloxacin. Overall patient's breathing status has improved and she states that she is doing much better and wants to go home. So patient is being discharged home to complete a course of levofloxacin for a total of 5 days. Patient was also provided with information regarding reduction facilities. Vital Signs 03/23/21 03/23/21 03/23/21 07:41 07:49 08:00 Temperature 98.8 F Pulse Rate 88 80 Pulse Rate [ 97 Pulse Oximetery ] Blood Pressure 135/84 [Right Arm] O2 Sat by Pulse 95 Oximetry PHYSICAL EXAMINATION: GENERAL: The patient is alert and oriented x3, not in any acute distress. Well developed, well nourished. HEENT: Pupils are round and equally reacting to light. CARDIOVASCULAR: S1 and S2 present. No murmurs, rubs, or gallops. PULMONARY: Clear , No additional sounds ABDOMEN: Soft, nontender, nondistended, normoactive bowel sounds. No palpable organomegaly. MUSCULOSKELETAL: No joint swelling or deformity. EXTREMITIES: No cyanosis, clubbing, or pedal edema. NEUROLOGICAL: Gross neurological examination did not reveal any focal deficits. DISCHARGE DIAGNOSIS Acute hypoxic respiratory failure -possibly left lower lobe infiltrate could be aspiration Overdose of fentanyl History of polysubstance abuse History of hepatitis C Nicotine dependence Transaminitis Follow-up: Patient is advised to follow up with her primary care physician in 2- 3 days. Advised to complete her antibiotic course of levofloxacin. Patient is being discharged home. Patient Condition at Discharge: Fair Plan - Discharge Summary Discharge Rx Participant: No New Discharge Prescriptions: New Levofloxacin [Levaquin] 750 mg PO DAILY 5 Days #1 tab Continue Mirtazapine [Remeron] 30 mg PO HS hydrOXYzine pamoate [Vistaril] 100 mg PO HS Discharge Medication List Mirtazapine [Remeron] 30 mg PO HS 04/28/20 [History] hydrOXYzine pamoate [Vistaril] 100 mg PO HS 04/28/20 [History] Levofloxacin [Levaquin] 750 mg PO DAILY 5 Days #1 tab 05/02/20 [Rx] Follow up Appointment(s)/Referral(s): Jackie Damon MD [Primary Care Provider] - 05/04/20 2:15 pm Phuc Hercules DO [Doctor of Osteopathic Medicine] - 05/11/20 9:45 am Patient Instructions/Handouts: Hypoxia (GEN), Adult Overdose (ED), Opioid Use Disorder (DC) Discharge Disposition: HOME SELF-CARE
[2020-05-02 13:28] VITALS: PULSE 78
== END 2020-05-02 16:26 | disposition home or self-care (01) | DRG 917 ==
LOC: EC 04:55 → 3SCARD 06:30
PROVIDERS: ADMIT Hospitalist; ATTEND Hospitalist
DX: T40.411A Poisoning by fentanyl or fentanyl analogs, accidental (unintentional), initial encounter (principal); J96.01 Acute respiratory failure with hypoxia; R04.2 Hemoptysis; J95.4 Chemical pneumonitis due to anesthesia; B18.2 Chronic viral hepatitis C; F15.10 Other stimulant abuse, uncomplicated; F11.10 Opioid abuse, uncomplicated; Z20.822 Contact with and (suspected) exposure to COVID-19; F17.210 Nicotine dependence, cigarettes, uncomplicated; R00.0 Tachycardia, unspecified; F32.9 Major depressive disorder, single episode, unspecified; F41.9 Anxiety disorder, unspecified; Z79.899 Other long term (current) drug therapy; Z71.6 Tobacco abuse counseling; Z88.2 Allergy status to sulfonamides; Z82.49 Family history of ischemic heart disease and other diseases of the circulatory system
CPT/HCPCS: 36415; 71045; 71046; 71250; 80048; 80053; 80143; 80179; 80306; 80320; 81001; 81025; 82550; 83690; 83735; 83880; 84100; 85025; 85027; 85379; 86738; 87635; 93005; 94640; 94760; 99285

== ENCOUNTER 2020-10-19 16:33 | Emergency (ER) | payer OTHER ==
[2020-10-19] MEDS ORDERED: NALOXONE 0.4 MG/ML 1 ML VIAL IVP STA (16:45)
[2020-10-19] MEDS ORDERED: ONDANSETRON 4 MG/2 ML VIAL IVP STA (16:45)
[2020-10-19 16:55] VITALS: RESP 16
[2020-10-19 16:58] VITALS: TEMP 99
[2020-10-19] MEDS ORDERED: SODIUM CHLORIDE 0.9% 1,000 ML IV STA (17:13)
--- NOTE | 2020-10-19 17:33 | XR ---
EXAMINATION TYPE: XR chest 1V portable DATE OF EXAM: 10/19/2020 CLINICAL HISTORY: dyspnea. TECHNIQUE: Portable frontal view of the chest. COMPARISON: 05/01/2020 FINDINGS: The cardiomediastinal silhouette is within normal limits for size. Pulmonary vasculature i s normal. There is no focal air space opacity. No pleural effusion. No pneumothorax seen. No acute d isplaced osseous fracture. IMPRESSION: No acute cardiopulmonary process.
[2020-10-19 17:51] LABS: Basophils % (A) 0 %; Eosinophils # (A) 0.1 k/uL (0-0.7); Eosinophils % (A) 2 %; HCT 35.1 % (34.0-46.0); HGB 11.6 gm/dL (11.4-16.0); Lymphocytes # (A) 1.4 k/uL (1.0-4.8); Lymphocytes % (A) 27 %; MCHC 32.9 g/dL (31.0-37.0); MCV 85.1 fL (80.0-100.0); Mean Platelet Volume 7.5; Monocytes # (A) 0.2 k/uL (0-1.0); Monocytes % (A) 5 %; Neutrophils # (A) 3.1 k/uL (1.3-7.7); Neutrophils % (A) 62 %; Platelet Count 260 k/uL (150-450); RBC 4.13 m/uL (3.80-5.40)
[2020-10-19 18:02] LABS: ALT 9 U/L (4-34); AST 26 U/L (14-36); Acetaminophen <10.0 ug/mL; African American GFR (CKD) >90 (>60 ml/min/1.73 sqM); Albumin 3.8 g/dL (3.5-5.0); Alcohol <10 mg/dL; Alkaline Phosphatase 71 U/L (38-126); Anion Gap 8 mmol/L; Blood Urea Nitrogen 8 mg/dL (7-17); Calcium 8.8 mg/dL (8.4-10.2); Carbon Dioxide 27 mmol/L (22-30); Chloride 104 mmol/L (98-107); Glucose 114 mg/dL (74-99); Non-African American GFR(CKD) >90 (>60 ml/min/1.73 sqM); Potassium 4.5 mmol/L (3.5-5.1); Salicylate <1.0 mg/dL; Sodium 139 mmol/L (137-145); Total Bilirubin 0.1 mg/dL (0.2-1.3); Total Protein 6.6 g/dL (6.3-8.2)
[2020-10-19 18:18] LABS: HCG,Quantitative Serum <2.4 mIU/mL
[2020-10-19 18:24] LABS: Appearance,Urine Turbid (Clear); Bilirubin,Urine Negative (Negative); Blood,Urine Negative (Negative); Budding Yeast,Urine Many /hpf; Color,Urine Light Yellow; Glucose,Urine (UA) Negative (Negative); Ketones,Urine Negative (Negative); Leukocyte Esterase,Urine Small (Negative); Mucus,Urine Rare /hpf; Nitrite,Urine Negative (Negative); Protein,Urine Negative (Negative); Specific Gravity,Urine 1.014 (1.001-1.035); Squamous Epithelial Cell,Urine 8 /hpf (0-4); Urobilinogen,Urine <2.0 mg/dL (<2.0); WBC,Urine 29 /hpf (0-5)
[2020-10-19 18:48] LABS: Amphetamine Screen,Urine Not Detected (NotDetected); Barbiturate Screen,Urine Not Detected (NotDetected); Benzodiazepines Screen,Urine Not Detected (NotDetected); Cocaine Screen,Urine Not Detected (NotDetected); Methadone Screen, Urine Not Detected (NotDetected); Opiate Screen,Urine Not Detected (NotDetected); Oxycodone Screen, Urine Not Detected (NotDetected); Phencyclidine Screen,Urine Not Detected (NotDetected); Tricyclic Antidepressant,Urine Not Detected (NotDetected); Urn Cannabinoid Scrn Not Detected (NotDetected)
[2020-10-19 18:59] VITALS: BP 130/79; PULSE 53
--- NOTE | 2020-10-19 19:24 | ED ---
General Adult HPI - General Chief complaint: Overdose Stated complaint: overdose Time Seen by Provider: 10/19/20 16:50 Source: patient, RN notes reviewed, old records reviewed Mode of arrival: wheelchair Limitations: altered mental status - History of Present Illness Initial comments: Patient is a 20-year-old female with past medical history remarkable for opiate abuse presents emergency Department apneic. Patient was brought to the emergency department by an x-ray tech, and another part of the hospital. Patient was unresponsive, pale with blue lips. She had a decreased respiratory rate. Patient was placed in a room and I was notified immediately. When I arrived, patient was unresponsive was unable to provide any form of history. She does have what appears to be track sheehan on her arms. They found opiate paraphernalia including needles and syringes in her pants that appear recently used. No other known history is known. Patient initially presented as a Dorota Werner. - Related Data Previous Rx's Medication Instructions Recorded Naloxone HCl [Narcan] 4 mg NASAL ONCE #1 dispenser 10/19/20 Allergies Allergy/AdvReac Type Severity Reaction Status Date / Time Sulfa (Sulfonamide Allergy Rash/Hives Verified 10/19/20 17:18 Antibiotics) sulfate ion Allergy Rash/Hives Verified 10/19/20 17:18 Review of Systems ROS Statement: Those systems with pertinent positive or pertinent negative responses have been documented in the HPI. Unable to obtain time secondary to patient's clinical status. ROS Other: All systems not noted in ROS Statement are negative. Past Medical History Past Medical History: Unable to Obtain History of Any Multi-Drug Resistant Organisms: Unobtainable Past Surgical History: Unable to Obtain Past Psychological History: Unable to Obtain Smoking Status: Unknown if ever smoked Past Alcohol Use History: Unable to Obtain Past Drug Use History: Unable to Obtain General Exam - General Exam Comments Initial Comments: General: Patient is unresponsive with a low respiratory rate. HEAD: Normal with no signs of head trauma. EYES: Pupils are 1 mm bilaterally and minimally reactive to light. ENT: Normal oropharynx. RESPIRATORY: Lips with a clear breath sounds bilaterally with reduced respira tory rate. Trachea is midline. C/V: She is tachycardic with regular rhythm. S1 and S2 auscultated. Peripheral pulses are 2+ and intact throughout. ABD: Abd is soft, nontender, nondistended EXT: No obvious deformity of the extremities. SKIN: Patient does have appears to be track sheehan as well as scabs over her body. NEURO: Patient is currently unresponsive with a respiratory rate, likely second wing to overdose. Limitations: altered mental status Course Vital Signs 10/19/20 10/19/20 10/19/20 16:33 16:38 16:47 Temperature Pulse Rate 170 H 114 H Respiratory 4 L 4 L 16 Rate Blood Pressure 185/112 166/102 O2 Sat by Pulse 100 Oximetry 10/19/20 10/19/20 16:52 18:59 Temperature 99.0 F Pulse Rate 112 H 53 L Respiratory 16 16 Rate Blood Pressure 151/82 130/79 O2 Sat by Pulse 100 97 Oximetry Medical Decision Making - Medical Decision Making Based on the patient's presentation and physical exam, patient appears to have expressed an acute opiate overdose. Patient is currently unresponsive at the low respiratory rate. Respirations are being assisted with BVM. Patient's saturations are 100% at this time. Patient's tachycardic but this is likely a stress response. IV access will be obtained. She was immediately administered 2 mg of Narcan IV. She was also given 4 mg of Zofran IV. Patient shortly thereafter awoke and was responsive. She was alert and oriented 4. She figured she overdosed. She denies any acute complaints at this time. She denies any chest pain, shortness of breath, abdominal pain, nausea, vomiting. Patient was transitioned to nasal cannula. Patient remains tachycardic but this is slowly improving. She states she has not used heroin in quite some time, however today deduce final. She got it from not her typical dealer. States she has overdosed before but it has been quite some time since her last overdose. She denies any other drug use today. She is not acute complaint at this time. Neurological exam at this time was normal, NIH was 0, GCS is 15. Remainder of her exam is unremarkable except for sinus tachycardia. We will obtain basic laboratory studies as well as an EKG. She'll be observed here in the department for multiple hours. She was in agreement this plan. Chest x-ray will also be obtained. We will place on 1 L fluid bolus. She is connected to continuous cardiac monitoring. Patient's initial EKG revealed sinus tachycardia with no acute signs of ischemia. Repeat EKG obtained prior to discharge revealed normal sinus rhythm with no acute signs of ischemia. Chest x-ray showed no acute cardiopulmonary process. There laboratory studies were remarkable for a contaminated urinalysis. UDS is negative for any drugs at this time. Remainder of her labs were unremarkable. Following 3 hours of observation in the emergency department, patient is off nasal cannula for quite some time, and is feeling back to baseline. Do believe it is safer to be discharged home at this time. She was in agreement this plan. I counseled her on cessation of opiate use. She'll be given a Narcan prescription palpation. I will provide the patient with a prescription for Narcan. I instructed the patient to follow up with their PCP in the next 3 days. I explained that the patient should return to the emergency department if they experience any worsening symptoms. Strict return precautions were discussed with the patient. The patient expressed understanding of these instructions. I answered all questions that the patient had. The patient was discharged home in good condition with their prescriptions and follow up information. - Lab Data Result diagrams: 10/19/20 17:20 10/19/20 17:20 Lab Results 10/19/20 10/19/20 10/19/20 Range/Units 17:20 17:20 17:20 WBC 5.0 (3.8-10.6) k/uL RBC 4.13 (3.80-5.40) m/uL Hgb 11.6 (11.4-16.0) gm/dL Hct 35.1 (34.0-46.0) % MCV 85.1 (80.0-100.0) fL MCH 28.0 (25.0-35.0) pg MCHC 32.9 (31.0-37.0) g/dL RDW 13.0 (11.5-15.5) % Plt Count 260 (150-450) k/uL MPV 7.5 Neutrophils % 62 % Lymphocytes % 27 % Monocytes % 5 % Eosinophils % 2 % Basophils % 0 % Neutrophils # 3.1 (1.3-7.7) k/uL Lymphocytes # 1.4 (1.0-4.8) k/uL Monocytes # 0.2 (0-1.0) k/uL Eosinophils # 0.1 (0-0.7) k/uL Basophils # 0.0 (0-0.2) k/uL Sodium 139 (137-145) mmol/L Potassium 4.5 (3.5-5.1) mmol/L Chloride 104 (98-107) mmol/L Carbon Dioxide 27 (22-30) mmol/L Anion Gap 8 mmol/L BUN 8 (7-17) mg/dL Creatinine 0.63 (0.52-1.04) mg/dL Est GFR (CKD-EPI)AfAm >90 (>60 ml/min/1.73 sqM) Est GFR (CKD-EPI)NonAf >90 (>60 ml/min/1.73 sqM) Glucose 114 H (74-99) mg/dL Calcium 8.8 (8.4-10.2) mg/dL Total Bilirubin 0.1 L (0.2-1.3) mg/dL AST 26 (14-36) U/L ALT 9 (4-34) U/L Alkaline Phosphatase 71 (38-126) U/L Total Protein 6.6 (6.3-8.2) g/dL Albumin 3.8 (3.5-5.0) g/dL HCG, Quant <2.4 mIU/mL Urine Color Light Yellow Urine Appearance Turbid H (Clear) Urine pH 8.0 (5.0-8.0) Ur Specific [place] 1.014 (1.001-1.035) Urine Protein Negative (Negative) Urine Glucose (UA) Negative (Negative) Urine Ketones Negative (Negative) Urine Blood Negative (Negative) Urine Nitrite Negative (Negative) Urine Bilirubin Negative (Negative) Urine Urobilinogen <2.0 (<2.0) mg/dL Ur Leukocyte Esterase Small H (Negative) Urine WBC 29 H (0-5) /hpf Urine WBC Clumps Many H (None) /hpf Ur Squamous Epith Cells 8 H (0-4) /hpf Urine Mucus Rare H (None) /hpf Urine Yeast (Budding) Many H (None) /hpf Salicylates <1.0 mg/dL Urine Opiates Screen Not Detected (NotDetected) Ur Oxycodone Screen Not Detected (NotDetected) Urine Methadone Screen Not Detected (NotDetected) Ur Propoxyphene Screen Not Detected (NotDetected) Acetaminophen <10.0 ug/mL Ur Barbiturates Screen Not Detected (NotDetected) U Tricyclic Antidepress Not Detected (NotDetected) Ur Phencyclidine Scrn Not Detected (NotDetected) Ur Amphetamines Screen Not Detected (NotDetected) U Methamphetamines Scrn Not Detected (NotDetected) U Benzodiazepines Scrn Not Detected (NotDetected) Urine Cocaine Screen Not Detected (NotDetected) U Marijuana (THC) Screen Not Detected (NotDetected) Serum Alcohol <10 mg/dL - EKG Data -: EKG Interpreted by Me EKG Comments: 12-lead Electrocardiogram Interpretation Note EKG was reviewed and interpreted by myself. 12-lead ECG performed at 1645 is interpreted by me as revealing sinus tachycardiac at a rate of 135 beats per minute. [place] is normal. IN interval is 120 ms, QRS duration 72 ms, QTc is 4-93 ms.. There were no ST or T wave abnormalities to suggest myocardial ischemia or injury. R wave progression across the precordium was satisfactory. By my interpretation this EKG is non-diagnostic for acute ischemia. Repeat EKG was obtained. 12-lead Electrocardiogram Interpretation Note EKG was reviewed and interpreted by myself. 12-lead ECG performed at 1809 is interpreted by me as revealing normal sinus rhythm at a rate of 61 beats per minute. [place] is normal. IN interval is 160 ms, QRS duration 74 ms, QTc is 432 ms.. There were no ST or T wave abnormalities to suggest myocardial ischemia or injury. R wave progression across the precordium was satisfactory. By my interpretation this EKG is non-diagnostic for acute ischemia. Disposition Clinical Impression: Overdose opiate, Accidental drug overdose Disposition: HOME SELF-CARE Condition: Good Instructions (If sedation given, give patient instructions): Adult Overdose (ED) Prescriptions: Naloxone HCl [Narcan] 4 mg NASAL ONCE #1 dispenser Is patient prescribed a controlled substance at d/c from ED?: No Referrals: Jackie Damon MD [Primary Care Provider] - 1-2 days
== END 2020-10-19 19:47 | disposition home or self-care (01) ==
LOC: MERGE 16:33 → EC 16:33
DX: Z88.2 Allergy status to sulfonamides (principal)
CPT/HCPCS: 36415; 93005; 80053; 85025; 81001; 84702; 80306; 80143; 87086; 80179; 71045; 99284; 96374; 96375; 96361; G0480; J2310; J2405; 80320

== ENCOUNTER 2022-11-11 18:54 | Emergency (ER) | payer OTHER ==
[2022-11-11] MEDS ORDERED: SODIUM CHLORIDE 0.9% 1,000 ML IV ONE (19:06)
[2022-11-11 19:07] VITALS: TEMP 99.2
--- NOTE | 2022-11-11 19:33 | ED ---
General Adult HPI - General Chief complaint: Overdose Stated complaint: Overdose Time Seen by Provider: 11/11/22 19:05 Source: patient, EMS, RN notes reviewed, old records reviewed Mode of arrival: EMS Limitations: no limitations - History of Present Illness Initial comments: This is a 22-year-old female presents emergency department stating that she did some fentanyl and then became unresponsive according to bystanders and bystander stated that she stopped breathing and they started CPR quickly thereafter she became arousable when EMS arrived she was breathing around and had a pulse they started to help her with some bagging and assisted her and she slowly came around to her baseline. Patient has no complaints at all. - Related Data Home Medications Medication Instructions Recorded Confirmed Mirtazapine [Remeron] 30 mg PO HS 04/28/20 04/28/20 hydrOXYzine pamoate [Vistaril] 100 mg PO HS 04/28/20 04/28/20 Previous Rx's Medication Instructions Recorded Levofloxacin [Levaquin] 750 mg PO DAILY 5 Days #1 tab 05/02/20 Naloxone HCl [Narcan] 4 mg NASAL ONCE #1 dispenser 10/19/20 Allergies Allergy/AdvReac Type Severity Reaction Status Date / Time Sulfa (Sulfonamide Allergy Anaphylaxis Verified 10/20/20 11:37 Antibiotics) sulfate ion Allergy Rash/Hives Verified 10/20/20 11:37 Review of Systems ROS Statement: Those systems with pertinent positive or pertinent negative responses have been documented in the HPI. ROS Other: All systems not noted in ROS Statement are negative. Past Medical History Past Medical History: No Reported History, Unable to Obtain History of Any Multi-Drug Resistant Organisms: None Reported, Unobtainable Past Surgical History: No Surgical Hx Reported, Unable to Obtain Past Psychological History: Anxiety, Depression, Unable to Obtain Smoking Status: Current every day smoker, Unknown if ever smoked Past Alcohol Use History: None Reported Past Drug Use History: Heroin, Methamphetamine, Unable to Obtain - Past Family History Father Family Medical History: Hypertension General Exam - General Exam Comments Initial Comments: GENERAL: Patient is well-developed and well-nourished. Patient is nontoxic and well- hydrated and is in mild distress. ENT: Neck is soft and supple. No significant lymphadenopathy is noted. Oropharynx is clear. Moist mucous membranes. Neck has full range of motion without eliciting any pain. EYES: The sclera were anicteric and conjunctiva were pink and moist. Extraocular mo vements were intact and pupils were equal round and reactive to light. Eyelids were unremarkable. PULMONARY: Unlabored respirations. Good breath sounds bilaterally. No audible rales rhonchi or wheezing was noted. CARDIOVASCULAR: Patient is tachycardic at 140 beats minute ABDOMEN: Soft and nontender with normal bowel sounds. SKIN: Old laceration to the forehead is bleeding slightly NEUROLOGIC: Patient is alert and oriented x3. Cranial nerves II through XII are grossly intact. Motor and sensory are also intact. Normal speech, volume and content. Symmetrical smile. MUSCULOSKELETAL: Patient has tenderness on the lateral aspect of the left shoulder LYMPHATICS: No significant lymphadenopathy is noted PSYCHIATRIC: Normal psychiatric evaluation. Limitations: no limitations Course Vital Signs 11/11/22 11/11/22 11/11/22 18:55 19:30 20:45 Temperature 99.2 F Pulse Rate 146 H 137 H 109 H Respiratory 20 22 12 Rate Blood Pressure 152/89 142/104 147/82 O2 Sat by Pulse 99 97 97 Oximetry Medical Decision Making - Medical Decision Making EKG is interpreted by myself shows a sinus tachycardia at 140 bpm MD interval 231. Rest is 85 Q-T intervals 318 QTC is 400. Patient's EKG shows no ST segment elevation or depression. Was pt. sent in by a medical professional or institution ([facility], BUSHWALKING GUIDE, urgent care, hospital, or correction...) When possible be specific @ -No Did you speak to anyone other than the patient for history (EMS, parent, family, police, friend...)? What history was obtained from this source @ -EMS gave most of the history Did you review nursing and triage notes (agree or disagree)? Why? @ -I reviewed and agree with nursing and triage notes Were old charts reviewed (outside hosp., previous admission, EMS record, old EKG, old radiological studies, urgent care reports/EKG's, correction records)? Report findings @ -No old charts were reviewed Differential Diagnosis (chest pain, altered mental status, abdominal pain women, abdominal pain men, vaginal bleeding, weakness, fever, dyspnea, syncope, headache, dizziness, GI bleed, back pain, seizure, CVA, palpatations, mental health, musculoskeletal)? @ -Differential Altered Mental Status: Hypoglycemia, DKA, hypercapnia, ETOH, overdose, CO poisoning, trauma, myxedema coma, HTN encephalopathy, infection, encephalitis, psychosis, intercranial hemorrhage, hepatic encephalopathy, meningitis, CVA, this is not meant to be an all-inclusive list EKG interpreted by me (3pts min.). @ -As above X-rays interpreted by me (1pt min.). @ -X-ray of the chest showed no acute abnormality X-ray of the shoulder showed a greater trochanteric fracture patient indicated that this occurred a few weeks ago CT interpreted by me (1pt min.). @ -None done U/S interpreted by me (1pt. min.). @ -None done What testing was considered but not performed or refused? (CT, X-rays, U/S, labs)? Why? @ -None What meds were considered but not given or refused? Why? @ -None Did you discuss the management of the patient with other professionals (professionals i.e. , PA, BUSHWALKING GUIDE, lab, RT, psych nurse, social services counselor, head chopper, teacher, electronic intelligence officer, porter sample case)? Give summary @ -No Was smoking cessation discussed for >3mins.? @ -No Was critical care preformed (if so, how long)? @ -No Were there social determinants of health that impacted care today? How? (Homelessness, low income, unemployed, alcoholism, drug addiction, transportation, low edu. Level, literacy, decrease access to med. care, halfway, rehab)? @ -No Was there de-escalation of care discussed even if they declined (Discuss DNR or withdrawal of care, Hospice)? DNR status @ -No What co-morbidities impacted this encounter? (DM, HTN, Smoking, COPD, CAD, Cancer, CVA, ARF, Chemo, Hep., AIDS, mental health diagnosis, sleep apnea, morbid obesity)? @ -None Was patient admitted / discharged? Hospital course, mention meds given and route, prescriptions, significant lab abnormalities, going to OR and other pertinent info. @ -Patient was awake and alert upon arrival and had no complaints. Patient continues to have no new complaints she only complained of the pain she had in her shoulder for the last few weeks after she fell off of a skateboard . Patient admits to doing methamphetamine as well Undiagnosed new problem with uncertain prognosis? @ -No Drug Therapy requiring intensive monitoring for toxicity (Heparin, Nitro, Insulin, Cardizem)? @ -No Were any procedures done? @ -No Diagnosis/symptom? @ -Overdose Acute, or Chronic, or Acute on Chronic? @ -Acute Uncomplicated (without systemic symptoms) or Complicated (systemic symptoms)? @ -Complicated Side effects of treatment? @ -No Exacerbation, Progression, or Severe Exacerbation? @ -No Poses a threat to life or bodily function? How? (Chest pain, [place], [place], pneumonia, PE, COPD, DKA, ARF, appy, cholecystitis, CVA, Diverticulitis, Homicidal, Suic idal, threat to staff... and all critical care pts) @ -Yes this can lead to respiratory depression hypoxia and Diagnosis/symptom? @ -Greater trochanteric fracture Acute, or Chronic, or Acute on Chronic? @ -Acute Uncomplicated (without systemic symptoms) or Complicated (systemic symptoms)? @ -, Complicated Side effects of treatment? @ -none Exacerbation, Progression, or Severe Exacerbation] @ -no Poses a threat to life or bodily function? @ -no. - Lab Data Lab Results 11/11/22 Range/Units 19:15 Urine Opiates Screen Not Detected (NotDetected) Ur Oxycodone Screen Not Detected (NotDetected) Urine Methadone Screen Not Detected (NotDetected) Ur Propoxyphene Screen Not Detected (NotDetected) Ur Barbiturates Screen Not Detected (NotDetected) U Tricyclic Antidepress Not Detected (NotDetected) Ur Phencyclidine Scrn Not Detected (NotDetected) Ur Amphetamines Screen Detected H (NotDetected) U Methamphetamines Scrn Detected H (NotDetected) U Benzodiazepines Scrn Not Detected (NotDetected) Urine Cocaine Screen Not Detected (NotDetected) U Marijuana (THC) Screen Not Detected (NotDetected) Disposition Clinical Impression: Drug overdose, Greater trochanter fracture, Methamphetamine abuse Disposition: HOME SELF-CARE Condition: Good Instructions (If sedation given, give patient instructions): Adult Overdose (ED), Proximal Humerus Fracture (ED) Is patient prescribed a controlled substance at d/c from ED?: No Referrals: Beatriz Soliman DO [Doctor of Osteopathic Medicine] - 1-2 days Time of Disposition: 20:27
--- NOTE | 2022-11-11 19:59 | XR ---
EXAMINATION TYPE: XR chest 2V DATE OF EXAM: 11/11/2022 7:27 PM CLINICAL INDICATION:Female, 22 years old with history of Difficulty breathing ; [facility] COMPARISON: Chest radiographs from 10/19/2020 TECHNIQUE: XR chest 2V Frontal and lateral views of the chest. FINDINGS: Lungs/Pleura: There is no evidence of pleural effusion, focal consolidation, or pneumothorax. Pulmonary vascularity: Unremarkable. Heart/mediastinum: Cardiomediastinal silhouette is unremarkable. Musculoskeletal: No acute osseous pathology. IMPRESSION: No acute cardiopulmonary disease/process.
--- NOTE | 2022-11-11 20:01 | XR ---
EXAMINATION TYPE: XR shoulder complete LT DATE OF EXAM: 11/11/2022 7:30 PM CLINICAL INDICATION:Female, 22 years old with history of Fall; H COMPARISON: Same day radiograph. TECHNIQUE: XR shoulder complete LT; shoulder was examined in AP, internally rotated and scapular Y p rojections. FINDINGS/IMPRESSION: * Acute fracture of the left greater tubercle of the humerus. Mild displacement of one of the fragme nts. This is near the insertion of the supraspinatus. * Visualized portions of the chest are unremarkable and the clavicle is intact.
[2022-11-11 20:56] LABS: Amphetamine Screen,Urine Detected (NotDetected); Barbiturate Screen,Urine Not Detected (NotDetected); Benzodiazepines Screen,Urine Not Detected (NotDetected); Cocaine Screen,Urine Not Detected (NotDetected); Methadone Screen, Urine Not Detected (NotDetected); Opiate Screen,Urine Not Detected (NotDetected); Oxycodone Screen, Urine Not Detected (NotDetected); Phencyclidine Screen,Urine Not Detected (NotDetected); Tricyclic Antidepressant,Urine Not Detected (NotDetected); Urn Cannabinoid Scrn Not Detected (NotDetected)
[2022-11-11 21:22] VITALS: BP 143/92; PULSE 114; RESP 17
== END 2022-11-11 21:17 | disposition home or self-care (01) ==
LOC: EC 18:54
DX: S42.252A Displaced fracture of greater tuberosity of left humerus, initial encounter for closed fracture (principal); T40.411A Poisoning by fentanyl or fentanyl analogs, accidental (unintentional), initial encounter; R00.0 Tachycardia, unspecified; F15.90 Other stimulant use, unspecified, uncomplicated; F11.90 Opioid use, unspecified, uncomplicated; F17.200 Nicotine dependence, unspecified, uncomplicated; Z88.2 Allergy status to sulfonamides; X58.XXXA Exposure to other specified factors, initial encounter
CPT/HCPCS: 71046; 80306; 93005; 96360; 99285

== ENCOUNTER 2022-11-24 16:42 | Emergency (ER) | payer OTHER ==
[2022-11-24] MEDS ORDERED: diphenhydrAMINE 50 MG/ML 1 ML VIAL IVP STA (17:30)
[2022-11-24] MEDS ORDERED: METOCLOPRAMIDE 5 MG/ML 2 ML VIAL IVP STA (17:30)
--- NOTE | 2022-11-24 18:38 | ED ---
Overdose HPI - General Chief Complaint: Overdose Stated Complaint: overdose Time Seen by Provider: 11/24/22 16:50 Source: EMS Mode of arrival: EMS Limitations: no limitations - History of Present Illness Initial Comments: 22-year-old female presents emergency Department after an unintentional drug overdose. States that she has a history of heroin abuse. She has been clean for a while. States that today she bought $20 worth of heroin and injected it. She went unresponsive and family was able to administer 3 mg of intranasal Narcan. Patient never stopped breathing. No loss of pulse. No CPR was performed. She felt nauseated for EMS and was given 4 mg of Zofran. A rising continues to feel nauseated. Denies any headaches or visual changes. No chest pain or shortness of breath. Denies concern for . States that she has a history of overdosing in the past. No other alleviating, precipitating or modifying factors - Related Data Home Medications Medication Instructions Recorded Confirmed Mirtazapine [Remeron] 30 mg PO HS 04/28/20 04/28/20 hydrOXYzine pamoate [Vistaril] 100 mg PO HS 04/28/20 04/28/20 Previous Rx's Medication Instructions Recorded Levofloxacin [Levaquin] 750 mg PO DAILY 5 Days #1 tab 05/02/20 Naloxone HCl [Narcan] 4 mg NASAL ONCE #1 dispenser 10/19/20 Allergies Allergy/AdvReac Type Severity Reaction Status Date / Time Sulfa (Sulfonamide Allergy Anaphylaxis Verified 11/24/22 17:02 Antibiotics) sulfate ion Allergy Rash/Hives Verified 11/24/22 17:02 Review of Systems ROS Statement: Those systems with pertinent positive or pertinent negative responses have been documented in the HPI. ROS Other: All systems not noted in ROS Statement are negative. Past Medical History Past Medical History: No Reported History, Unable to Obtain History of Any Multi-Drug Resistant Organisms: None Reported, Unobtainable Past Surgical History: No Surgical Hx Reported, Unable to Obtain Past Psychological History: Anxiety, Depression, Unable to Obtain Smoking Status: Current every day smoker, Unknown if ever smoked Past Alcohol Use History: None Reported Past Drug Use History: Heroin, Methamphetamine, Unable to Obtain - Past Family History Father Family Medical History: Hypertension General Exam Limitations: no limitations General appearance: alert, in no apparent distress Head exam: Present: atraumatic, normocephalic, normal inspection Eye exam: Present: normal appearance, PERRL, EOMI. Absent: scleral icterus, conjunctival injection, periorbital swelling ENT exam: Present: normal exam, mucous membranes moist Neck exam: Present: normal inspection. Absent: tenderness, meningismus, lymphadenopathy Respiratory exam: Present: normal lung sounds bilaterally. Absent: respiratory distress, wheezes, rales, rhonchi, stridor Cardiovascular Exam: Present: regular rate, normal rhythm, normal heart sounds. Absent: systolic murmur, diastolic murmur, rubs, gallop, clicks GI/Abdominal exam: Present: soft, normal bowel sounds. Absent: distended, tenderness, guarding, rebound, rigid Extremities exam: Present: normal inspection, full ROM, normal capillary refill. Absent: tenderness, pedal edema, joint swelling, calf tenderness Back exam: Present: normal inspection Neurological exam: Present: alert, oriented X3, CN II-XII intact Psychiatric exam: Present: normal affect, normal mood Skin exam: Present: warm, dry, intact, normal color. Absent: rash Course Vital Signs 11/24/22 11/24/22 16:47 18:01 Temperature 98.5 F 98.6 F Pulse Rate 87 86 Respiratory 19 16 Rate Blood Pressure 155/98 148/88 O2 Sat by Pulse 96 97 Oximetry Medical Decision Making - Medical Decision Making Was pt. sent in by a medical professional or institution ([facility], HOME THEATER EXPERT, urgent care, hospital, or [place] [facility] facility...) When possible be specific @ -No Did you speak to anyone other than the patient for history (EMS, parent, family, police, friend...)? What history was obtained from this source @ -Spoke with EMS Did you review nursing and triage notes (agree or disagree)? Why? @ -I reviewed and agree with nursing and triage notes Were old charts reviewed (outside hosp., previous admission, EMS record, old EKG, old radiological studies, urgent care reports/EKG's, [place] [facility] records)? Report findings @ -I reviewed old charts. Patient has been seen previously several times for overdose Differential Diagnosis (chest pain, altered mental status, abdominal pain women, abdominal pain men, vaginal bleeding, weakness, fever, dyspnea, syncope, headache, dizziness, GI bleed, back pain, seizure, CVA, palpatations, mental health, musculoskeletal)? @ -Intentional drug overdose, accidental opiate overdose, alcohol intoxication, depression EKG interpreted by me (3pts min.). @ -Not done X-rays interpreted by me (1pt min.). @ -None done CT interpreted by me (1pt min.). @ -None done U/S interpreted by me (1pt. min.). @ -None done What testing was considered but not performed or refused? (CT, X-rays, U/S, labs)? Why? @ -None What meds were considered but not given or refused? Why? @ -None Did you discuss the management of the patient with other professionals (professionals i.e. Dr., PA, HOME THEATER EXPERT, lab, RT, psych nurse, mental health social worker, internet sales associate, teacher, conservation science officer, registered nurse hh case manager)? Give summary @ -No Was smoking cessation discussed for >3mins.? @ -No Was critical care preformed (if so, how long)? @ -No Were there social determinants of health that impacted care today? How? (Homelessness, low income, unemployed, alcoholism, drug addiction, transportation, low edu. Level, literacy, decrease access to med. care, half-way, rehab)? @ -No Was there de-escalation of care discussed even if they declined (Discuss DNR or withdrawal of care, Hospice)? DNR status @ -No What co-morbidities impacted this encounter? (DM, HTN, Smoking, COPD, CAD, Cancer, CVA, ARF, Chemo, Hep., AIDS, mental health diagnosis, sleep apnea, morbid obesity)? @ -None Was patient admitted / discharged? Hospital course, mention meds given and route, prescriptions, significant lab abnormalities, going to OR and other pertinent info. @ -Discharged. Upon arrival patient is placed in room 28. A thorough history and physical exam was performed. Patient continues to be nauseated and therefore she is given Reglan and Benadryl. She is observed in the emergency department for several hours without any increased sedation. At this time the patient feels comfortable being discharged home. Instructed to stop using drugs. Follow up with her doctor and return for any new or worsening symptoms. Patient was agreeable to this plan and she was discharged in stable condition Undiagnosed new problem with uncertain prognosis? @ -No Drug Therapy requiring intensive monitoring for toxicity (Heparin, Nitro, Insulin, Cardizem)? @ -No Were any procedures done? @ -No Diagnosis/symptom? @ -Acute opiate overdose Acute, or Chronic, or Acute on Chronic? @ Acute Uncomplicated (without systemic symptoms) or Complicated (systemic symptoms)? @ -Complicated Side effects of treatment? @ -No Exacerbation, Progression, or Severe Exacerbation? @ -No Poses a threat to life or bodily function? How? (Chest pain, [place], [place], pneumonia, PE, COPD, DKA, ARF, appy, cholecystitis, CVA, Diverticulitis, Homicidal, Suicidal, threat to staff... and all critical care pts) @ -yes patient did overdose and required Narcan Disposition Clinical Impression: Poisoning by opiates and related narcotics, other Disposition: HOME SELF-CARE Condition: Stable Instructions (If sedation given, give patient instructions): Adult Overdose (ED) Additional Instructions: Please follow-up with your primary care doctor. We recommend that you do not use any drugs. Return to the emergency room for any new or worsening symptoms Is patient prescribed a controlled substance at d/c from ED?: No Referrals: None,Stated [Primary Care Provider] - 1-2 days Time of Disposition: 18:38
[2022-11-24 18:50] VITALS: BP 148/88; PULSE 86; RESP 16; TEMP 98.6
== END 2022-11-24 19:22 | disposition home or self-care (01) ==
LOC: EC 16:42
DX: T40.601A Poisoning by unspecified narcotics, accidental (unintentional), initial encounter (principal); F41.9 Anxiety disorder, unspecified; F32.A Depression, unspecified; F15.90 Other stimulant use, unspecified, uncomplicated; Z88.2 Allergy status to sulfonamides
CPT/HCPCS: 99284; 96374; 96375; J1200; J2765

== ENCOUNTER 2023-01-10 10:51 | Emergency (ER) | payer OTHER ==
[2023-01-10] MEDS ORDERED: SODIUM CHLORIDE 0.9% 1,000 ML IV ONE ×2 (11:03)
[2023-01-10 11:18] VITALS: TEMP 97
[2023-01-10 11:27] LABS: Basophils % (A) 0 %; Eosinophils % (A) 0 %; HCT 37.5 % (34.0-46.0); HGB 12.1 gm/dL (11.4-16.0); Lymphocytes # (A) 1.8 k/uL (1.0-4.8); Lymphocytes % (A) 16 %; MCH 27.9 pg (25.0-35.0); MCHC 32.3 g/dL (31.0-37.0); MCV 86.6 fL (80.0-100.0); Monocytes # (A) 0.5 k/uL (0-1.0); Monocytes % (A) 5 %; Neutrophils # (A) 8.5 k/uL (1.3-7.7); Neutrophils % (A) 77 %; Platelet Count 627 k/uL (150-450); RBC 4.33 m/uL (3.80-5.40); RDW 13.8 % (11.5-15.5)
[2023-01-10 11:37] LABS: ALT 15 U/L (4-34); African American GFR (CKD) 85 (>60 ml/min/1.73 sqM); Anion Gap 17 mmol/L; Blood Urea Nitrogen 22 mg/dL (7-17); Calcium 9.6 mg/dL (8.4-10.2); Carbon Dioxide 23 mmol/L (22-30); Chloride 97 mmol/L (98-107); Glucose 161 mg/dL (74-99); Non-African American GFR(CKD) 74 (>60 ml/min/1.73 sqM); Sodium 137 mmol/L (137-145); Total Bilirubin 0.9 mg/dL (0.2-1.3)
[2023-01-10 11:38] LABS: Potassium 4.2 mmol/L (3.5-5.1)
[2023-01-10 11:39] LABS: AST 38 U/L (14-36); Albumin 4.7 g/dL (3.5-5.0); Alkaline Phosphatase 81 U/L (38-126); Total Protein 8.9 g/dL (6.3-8.2)
--- NOTE | 2023-01-10 11:44 | ED ---
Overdose HPI - General Chief Complaint: Overdose Stated Complaint: Overdose Time Seen by Provider: 01/10/23 10:52 Source: patient Mode of arrival: ambulatory Limitations: no limitations - History of Present Illness Initial Comments: 22-year-old female with past medical history of heroin and methamphetamine abuse he presents to the emergency department with an overdose on heroin. She was at her boyfriend's house. States that she went into the bathroom and shot up heroin in her right arm. Unknown how long she was unconscious for bites the boyfriend's grandmother did find her in the bathroom. There able to wake her up and move route to the couch however they called EMS. EMS states that she was sleepy however she was able to answer all questions appropriately. They did not feel that she required Narcan as she was able to hold a conversation. They noted that her oxygen was 92% with a little bit of an elevated heart rate. Patient denies any shortness of breath. No vomiting. No fevers. No report of any CPR. No other alleviating, precipitating or modifying factors - Related Data Home Medications Medication Instructions Recorded Confirmed Linezolid [Zyvox] 600 mg PO Q12H 01/10/23 01/10/23 Allergies Allergy/AdvReac Type Severity Reaction Status Date / Time Sulfa (Sulfonamide Allergy Rash/Hives Verified 01/10/23 12:51 Antibiotics) sulfate ion Allergy Rash/Hives Verified 01/10/23 12:51 Review of Systems ROS Statement: Those systems with pertinent positive or pertinent negative responses have been documented in the HPI. ROS Other: All systems not noted in ROS Statement are negative. Past Medical History Past Medical History: No Reported History, Unable to Obtain History of Any Multi-Drug Resistant Organisms: None Reported, Unobtainable Past Surgical History: No Surgical Hx Reported, Unable to Obtain Past Psychological History: Anxiety, Depression, Unable to Obtain Smoking Status: Current every day smoker, Unknown if ever smoked Past Alcohol Use History: None Reported Past Drug Use History: Unable to Obtain, Heroin, IV Drug Use, Methamphetamine - Past Family History Father Family Medical History: Hypertension General Exam Limitations: no limitations General appearance: alert, in no apparent distress Head exam: Present: atraumatic, normocephalic, normal inspection Eye exam: Present: normal appearance, PERRL, EOMI. Absent: scleral icterus, conjunctival injection, periorbital swelling ENT exam: Present: normal exam, mucous membranes moist Neck exam: Present: normal inspection. Absent: tenderness, meningismus, lymphadenopathy Respiratory exam: Present: normal lung sounds bilaterally. Absent: respiratory distress, wheezes, rales, rhonchi, stridor Cardiovascular Exam: Present: normal rhythm, tachycardia, normal heart sounds. Absent: systolic murmur, diastolic murmur, rubs, gallop, clicks GI/Abdominal exam: Present: soft, normal bowel sounds. Absent: distended, tenderness, guarding, rebound, rigid Extremities exam: Present: full ROM, normal capillary refill, other (some swelling to the left hand. There are stitches over the anterior and dorsal aspect of the hand. incisions are intact without drainage). Absent: tenderness, pedal edema, joint swelling, calf tenderness Back exam: Present: normal inspection Neurological exam: Present: alert, oriented X3, CN II-XII intact Psychiatric exam: Present: normal affect, normal mood Skin exam: Present: warm, dry, intact, normal color. Absent: rash Course Vital Signs 01/10/23 01/10/23 01/10/23 10:52 12:21 14:12 Temperature 97.0 F L Pulse Rate 119 H 87 79 Respiratory 16 18 18 Rate Blood Pressure 143/100 135/89 129/87 O2 Sat by Pulse 96 95 99 Oximetry Medical Decision Making - Medical Decision Making Was pt. sent in by a medical professional or institution (MARGRET Simmons, [employer], urgent care, hospital, or correction...) When possible be specific @ -No Did you speak to anyone other than the patient for history (EMS, parent, family, police, friend...)? What history was obtained from this source @ -Spoke with EMS Did you review nursing and triage notes (agree or disagree)? Why? @ -I reviewed and agree with nursing and triage notes Were old charts reviewed (outside hosp., previous admission, EMS record, old EKG, old radiological studies, urgent care reports/EKG's, correction records)? Report findings @ -I reviewed patient's previous ED records. She has been here several times for overdose Differential Diagnosis (chest pain, altered mental status, abdominal pain women, abdominal pain men, vaginal bleeding, weakness, fever, dyspnea, syncope, headache, dizziness, GI bleed, back pain, seizure, CVA, palpatations, mental health, musculoskeletal)? @ -Differential Altered Mental Status: Hypoglycemia, DKA, hypercapnia, ETOH, overdose, CO poisoning, trauma, myxedema coma, HTN encephalopathy, infection, encephalitis, psychosis, intercranial hemorrhage, hepatic encephalopathy, meningitis, CVA, this is not meant to be an all-inclusive list EKG interpreted by me (3pts min.). @ -Yes and demonstrates sinus tachycardia with a rate of 102. CO interval 116. QRS 88. QTC of 434. No acute ST segment elevations or depressions X-rays interpreted by me (1pt min.). @ -Yes and demonstrates no acute process CT interpreted by me (1pt min.). @ -None done U/S interpreted by me (1pt. min.). @ -None done What testing was considered but not performed or refused? (CT, X-rays, U/S, labs)? Why? @ -None What meds were considered but not given or refused? Why? @ -None Did you discuss the management of the patient with other professionals (professionals i.e. , PA, [employer], lab, RT, psych nurse, social insurance administrator, stock supervisor, teacher, sanitation officer, embedded case manager)? Give summary @ -No Was smoking cessation discussed for >3mins.? @ -No Was critical care preformed (if so, how long)? @ -No Were there social determinants of health that impacted care today? How? (Homelessness, low income, unemployed, alcoholism, drug addiction, t ransportation, low edu. Level, literacy, decrease access to med. care, fpc, rehab)? @ -No Was there de-escalation of care discussed even if they declined (Discuss DNR or withdrawal of care, Hospice)? DNR status @ -No What co-morbidities impacted this encounter? (DM, HTN, Smoking, COPD, CAD, Cancer, CVA, ARF, Chemo, Hep., AIDS, mental health diagnosis, sleep apnea, morbid obesity)? @ -IVDA Was patient admitted / discharged? Hospital course, mention meds given and route, prescriptions, significant lab abnormalities, going to OR and other pertinent info. @ -Discharged. Patient was observed for 2 hours. Laboratory studies were conducted. Chest x-ray was performed. She never required Narcan and remained alert and able to answer questions. At this time she'll be discharged home. Instructed highly that she stop using drugs. Follow up with her doctor and return for any new or worsening symptoms Undiagnosed new problem with uncertain prognosis? @ -No Drug Therapy requiring intensive monitoring for toxicity (Heparin, Nitro, Insulin, Cardizem)? @ -No Were any procedures done? @ -No Diagnosis/symptom? @ -Acute opiate overdose Acute, or Chronic, or Acute on Chronic? @ -Acute, recurrent Uncomplicated (without systemic symptoms) or Complicated (systemic symptoms)? @ -Complicated Side effects of treatment? @ -No Exacerbation, Progression, or Severe Exacerbation? @ -No Poses a threat to life or bodily function? How? (Chest pain, [place], [place], pneumonia, PE, COPD, DKA, ARF, appy, cholecystitis, CVA, Diverticulitis, Homicidal, Suicid al, threat to staff... and all critical care pts) @ -Yes patient could stop breathing - Lab Data Result diagrams: 01/10/23 11:14 01/10/23 11:14 Lab Results 01/10/23 01/10/23 01/10/23 Range/Units 11:14 11:14 11:14 WBC 11.0 H (3.8-10.6) k/uL RBC 4.33 (3.80-5.40) m/uL Hgb 12.1 (11.4-16.0) gm/dL Hct 37.5 (34.0-46.0) % MCV 86.6 (80.0-100.0) fL MCH 27.9 (25.0-35.0) pg MCHC 32.3 (31.0-37.0) g/dL RDW 13.8 (11.5-15.5) % Plt Count 627 H (150-450) k/uL MPV 7.0 Neutrophils % 77 % Lymphocytes % 16 % Monocytes % 5 % Eosinophils % 0 % Basophils % 0 % Neutrophils # 8.5 H (1.3-7.7) k/uL Lymphocytes # 1.8 (1.0-4.8) k/uL Monocytes # 0.5 (0-1.0) k/uL Eosinophils # 0.0 (0-0.7) k/uL Basophils # 0.0 (0-0.2) k/uL Sodium (137-145) mmol/L Potassium (3.5-5.1) mmol/L Chloride (98-107) mmol/L Carbon Dioxide (22-30) mmol/L Anion Gap mmol/L BUN (7-17) mg/dL Creatinine (0.52-1.04) mg/dL Est GFR (CKD-EPI)AfAm (>60 ml/min/1.73 sqM) Est GFR (CKD-EPI)NonAf (>60 ml/min/1.73 sqM) Glucose (74-99) mg/dL Calcium (8.4-10.2) mg/dL Total Bilirubin (0.2-1.3) mg/dL AST (14-36) U/L ALT (4-34) U/L Alkaline Phosphatase (38-126) U/L Total Protein (6.3-8.2) g/dL Albumin (3.5-5.0) g/dL Urine Color Yellow Urine Appearance Cloudy H (Clear) Urine pH 5.5 (5.0-8.0) Ur Specific [place] 1.023 (1.001-1.035) Urine Protein 1+ H (Negative) Urine Glucose (UA) Negative (Negative) Urine Ketones Negative (Negative) Urine Blood Large H (Negative) Urine Nitrite Negative (Negative) Urine Bilirubin Negative (Negative) Urine Urobilinogen <2.0 (<2.0) mg/dL Ur Leukocyte Esterase Negative (Negative) Urine RBC 33 H (0-5) /hpf Urine WBC 20 H (0-5) /hpf Ur Squamous Epith Cells 12 H (0-4) /hpf Amorphous Sediment Rare H (None) /hpf Urine Bacteria Rare H (None) /hpf Hyaline Casts 86 H (0-2) /lpf Urine Mucus Moderate H (None) /hpf Urine HCG, Qual Not Detected (Not Detectd) Urine Opiates Screen Not Detected (NotDetected) Ur Oxycodone Screen Not Detected (NotDetected) Urine Methadone Screen Not Detected (NotDetected) Ur Propoxyphene Screen Not Detected (NotDetected) Ur Barbiturates Screen Not Detected (NotDetected) U Tricyclic Antidepress Not Detected (NotDetected) Ur Phencyclidine Scrn Not Detected (NotDetected) Ur Amphetamines Screen Detected H (NotDetected) U Methamphetamines Scrn Detected H (NotDetected) U Benzodiazepines Scrn Not Detected (NotDetected) Urine Cocaine Screen Detected H (NotDetected) U Marijuana (THC) Screen Not Detected (NotDetected) 01/10/23 Range/Units 11:14 WBC (3.8-10.6) k/uL RBC (3.80-5.40) m/uL Hgb (11.4-16.0) gm/dL Hct (34.0-46.0) % MCV (80.0-100.0) fL MCH (25.0-35.0) pg MCHC (31.0-37.0) g/dL RDW (11.5-15.5) % Plt Count (150-450) k/uL MPV Neutrophils % % Lymphocytes % % Monocytes % % Eosinophils % % Basophils % % Neutrophils # (1.3-7.7) k/uL Lymphocytes # (1.0-4.8) k/uL Monocytes # (0-1.0) k/uL Eosinophils # (0-0.7) k/uL Basophils # (0-0.2) k/uL Sodium 137 (137-145) mmol/L Potassium 4.2 (3.5-5.1) mmol/L Chloride 97 L (98-107) mmol/L Carbon Dioxide 23 (22-30) mmol/L Anion Gap 17 mmol/L BUN 22 H (7-17) mg/dL Creatinine 1.06 H (0.52-1.04) mg/dL Est GFR (CKD-EPI)AfAm 85 (>60 ml/min/1.73 sqM) Est GFR (CKD-EPI)NonAf 74 (>60 ml/min/1.73 sqM) Glucose 161 H (74-99) mg/dL Calcium 9.6 (8.4-10.2) mg/dL Total Bilirubin 0.9 (0.2-1.3) mg/dL AST 38 H (14-36) U/L ALT 15 (4-34) U/L Alkaline Phosphatase 81 (38-126) U/L Total Protein 8.9 H (6.3-8.2) g/dL Albumin 4.7 (3.5-5.0) g/dL Urine Color Urine Appearance (Clear) Urine pH (5.0-8.0) Ur Specific [place] (1.001-1.035) Urine Protein (Negative) Urine Glucose (UA) (Negative) Urine Ketones (Negative) Urine Blood (Negative) Urine Nitrite (Negative) Urine Bilirubin (Negative) Urine Urobilinogen (<2.0) mg/dL Ur Leukocyte Esterase (Negative) Urine RBC (0-5) /hpf Urine WBC (0-5) /hpf Ur Squamous Epith Cells (0-4) /hpf Amorphous Sediment (None) /hpf Urine Bacteria (None) /hpf Hyaline Casts (0-2) /lpf Urine Mucus (None) /hpf Urine HCG, Qual (Not Detectd) Urine Opiates Screen (NotDetected) Ur Oxycodone Screen (NotDetected) Urine Methadone Screen (NotDetected) Ur Propoxyphene Screen (NotDetected) Ur Barbiturates Screen (NotDetected) U Tricyclic Antidepress (NotDetected) Ur Phencyclidine Scrn (NotDetected) Ur Amphetamines Screen (NotDetected) U Methamphetamines Scrn (NotDetected) U Benzodiazepines Scrn (NotDetected) Urine Cocaine Screen (NotDetected) U Marijuana (THC) Screen (NotDetected) Disposition Clinical Impression: Overdose Disposition: HOME SELF-CARE Condition: Stable Instructions (If sedation given, give patient instructions): Adult Overdose (ED) Additional Instructions: Please follow up with us if you need any further treatment. Is patient prescribed a controlled substance at d/c from ED?: No Referrals: None,Stated [Primary Care Provider] - 1-2 days Time of Disposition: 13:05
[2023-01-10 11:50] LABS: Amphetamine Screen,Urine Detected (NotDetected); Barbiturate Screen,Urine Not Detected (NotDetected); Benzodiazepines Screen,Urine Not Detected (NotDetected); Cocaine Screen,Urine Detected (NotDetected); Methadone Screen, Urine Not Detected (NotDetected); Opiate Screen,Urine Not Detected (NotDetected); Oxycodone Screen, Urine Not Detected (NotDetected); Phencyclidine Screen,Urine Not Detected (NotDetected); Tricyclic Antidepressant,Urine Not Detected (NotDetected); Urn Cannabinoid Scrn Not Detected (NotDetected)
--- NOTE | 2023-01-10 11:54 | XR ---
EXAMINATION TYPE: XR chest 2V DATE OF EXAM: 01/10/2023 COMPARISON: NONE HISTORY: Overdose. TECHNIQUE: Frontal and lateral views of the chest are obtained. FINDINGS: There is no focal air space opacity, pleural effusion, or pneumothorax seen. The cardiac silhouette size is within normal limits. The osseous structures are intact. IMPRESSION: No acute cardiopulmonary process.
[2023-01-10 12:00] LABS: Amorphous Sediment,Urine Rare /hpf; Appearance,Urine Cloudy (Clear); Bacteria,Urine Rare /hpf; Bilirubin,Urine Negative (Negative); Blood,Urine Large (Negative); Color,Urine Yellow; Glucose,Urine (UA) Negative (Negative); Hyaline Casts,Urine 86 /lpf (0-2); Ketones,Urine Negative (Negative); Leukocyte Esterase,Urine Negative (Negative); Mucus,Urine Moderate /hpf; Nitrite,Urine Negative (Negative); PH, Urine 5.5 (5.0-8.0); Protein,Urine 1+ (Negative); RBC,Urine 33 /hpf (0-5); Specific Gravity,Urine 1.023 (1.001-1.035); Squamous Epithelial Cell,Urine 12 /hpf (0-4); Urobilinogen,Urine <2.0 mg/dL (<2.0); WBC,Urine 20 /hpf (0-5)
[2023-01-10 12:39] VITALS: RESP 18
[2023-01-10 14:32] VITALS: BP 129/87; PULSE 79
== END 2023-01-10 14:13 | disposition home or self-care (01) ==
LOC: EC 10:51
DX: T40.1X1A Poisoning by heroin, accidental (unintentional), initial encounter (principal); R00.0 Tachycardia, unspecified; F17.200 Nicotine dependence, unspecified, uncomplicated; F15.90 Other stimulant use, unspecified, uncomplicated; Z88.2 Allergy status to sulfonamides; Z86.59 Personal history of other mental and behavioral disorders
CPT/HCPCS: 36415; 71046; 80053; 80306; 81001; 81025; 85025; 93005; 96360; 99285